=== PATIENT | female | born 1930 | race Caucasian/White ===

== ENCOUNTER 2016-07-25 11:48 | Emergency (ER) | payer MEDICARE, BC ==
[2016-07-25] MEDS ORDERED: Aspirin Low Dose CHEW TAB* 81 MG PO ONE (15:10)
--- NOTE | 2016-07-25 15:10 | UC ---
UC General HPI - HPI Summary HPI Summary: 86 yo female c/o "jittery" feeling x on and off x approx 1 week. Worse since this morning. Alleviating / worsening factors unclear. Pt notes that recently was placed on prednisone approx 3 weeks ago. No fever / chills. No sob / cp / palpitations. + hx colitis, but no recent melena / brbpr. No rash. appetite ok. Denies urinary changes. Although does feel some occas lower abd cramps. Hx [place] -> 3 stents in 1999. Symptoms similar at that time. Also potentially sign - hx "spot" on pancreas, being followed closely, but not cancerous at this time. + hx DM type 2 - History of Current Complaint Chief Complaint: UCGeneralIllness Stated Complaint: SUGAR ISSUE-JITTERY Time Seen by Provider: 07/25/16 14:43 Hx Obtained From: Patient Onset/Duration: Gradual Onset - Allergy/Home Medications Allergies/Adverse Reactions: Allergies Allergy/AdvReac Type Severity Reaction Status Date / Time Levofloxacin [From Levaquin] Allergy Hives/Diff. Verified 07/25/16 15:59 Breathing/I tching Codeine AdvReac Unknown Nausea Verified 07/25/16 15:59 Simvastatin [From Zocor] AdvReac Unknown Leg Cramps Verified 07/25/16 15:59 PMH/Surg Hx/FS Hx/Imm Hx Previously Healthy: No - see hpi. takes many medications. took 81mg po x 1 asa today Endocrine History Of: Reports: Diabetes - TYPE 2 Denies: Thyroid Disease Cardiovascular History Of: Reports: Hypertension, Myocardial Infarction Denies: Cardiac Disorders, Pacemaker/ICD Comment Only: Congestive Heart Failure - [place]-1999 Respiratory History Of: Reports: COPD, Pneumonia Denies: Asthma GI/ History Of: Reports: Ulcer Comment Only: Renal Disease - low eGFR Neurological History Of: Denies: Dementia Psychological History Of: Reports: Anxiety, Depression - Surgical History Surgical History: Yes Surgery Procedure, Year, and Place: PERFORATED EAR DRUM X2; CATARACTS; PARTIAL HYSTERECTOMY; SHOULDER SURGERY 10-11; TUMOR REMOVED FROM LEFT ARM 15+YRS AGO; HEMHORROID; 3 STENTS IN HEART- [facility]LY PECK- PT TO BRING DOCUMENTATION W/ HER; [employer] LOOP RECORDER- I INSTRUCTED PT TO DOWNLOAD PRIOR TO MRI- PER PT, SHE HAS IT DONE W/ THE OFFICE ONCE A MONTH- I INSTRUCTED PT SHE NEEDED TO HAVE IT DONE @ THE OFFICE PRIOR TO HER MRI SO THAT EVERYTHING GETS DOWNLOADED, SHE SAID SHE WILL. - Family History Family History: NON CONTRIBUTORY - Social History Alcohol Use: None Substance Use Type: None Smoking Status (MU): Former Smoker Type: Cigarettes Amount Used/How Often: 1 pack day Length of Time of Smoking/Using Tobacco: 40 years Have You Smoked in the Last Year: No When Did the Patient Quit Smoking/Using Tobacco: 1999 - Immunization History Most Recent Influenza Vaccination: 02/2014 Most Recent Tetanus Shot: date unknown Most Recent Pneumonia Vaccination: 2008 Review of Systems Constitutional: Other - see hpi Skin: Negative Eyes: Other - + trouble focusing eyes x 1 week ENT: Negative Respiratory: Other - see hpi Cardiovascular: Chest Pain Gastrointestinal: Other - cramping Genitourinary: Negative Motor: Negative, Other - hx polio Musculoskeletal: Negative Neurological: Other - hx 3 tia's Psychological: Negative All Other Systems Reviewed And Are Negative: Yes Physical Exam Triage Information Reviewed: Yes Appearance: Well-Appearing, Well-Nourished - sitting up. conversing ok. Vital Signs: Initial Vital Signs Temp 97.9 F 07/25/16 11:56 Pulse 101 07/25/16 11:56 Resp 18 07/25/16 11:56 BP 137/64 07/25/16 11:56 Pulse Ox 96 07/25/16 11:56 Vital Signs Reviewed: Yes Eye Exam: Normal ENT Exam: Normal Neck exam: Normal - no jvd Respiratory Exam: Normal Respiratory: Positive: Chest non-tender, Lungs clear, Normal breath sounds, No respiratory distress, No accessory muscle use Cardiovascular Exam: Other - RRR, correlates with rad pulse. ? syst m Cardiovascular: Positive: Pulses Normal - radial, Brisk Capillary Refill Abdomen Description: Positive: Other: - soft nd, mild lower nondescript tender. no rebound. pt did not want to lie down for examination. Bowel Sounds: Positive: Present Musculoskeletal Exam: Other - gait slow, steady Neurological Exam: Normal - nonfocal. Pt states RLE weakness 2/2 polio years ago Psychological Exam: Normal - conversing easliy and appropriately Skin Exam: Normal Course/Dx - Course Course Of Treatment: EKG sr 73 bpm. low volt precord. blood sugar 90's at 2: 45. FS, see poct. Pt had just urinated prior to encounter so no urine dip. D /w Ms. Lang - symptoms could be from many diff etioligies (incl prednisone, which she asked about), but c/n exclude other such as cardiac. Atilio given previous mi and hx dm. Will send to ED for further eval and treatment. Pt agrees, but respectfully but firmly declines ems. AMA signed for ems. I called ED, spoke with CHARLY Cruz. - Differential Dx - Multi-Symptom Provider Diagnoses: unwell feeling. chest discomfort Discharge - Discharge Plan Condition: Guarded Disposition: AGAINST MEDICAL ADVICE Referrals: Rachel LEWIS [employer],Carla [Primary Care Provider] -
[2016-07-25 15:26] VITALS: BP 134/56
== END 2016-07-25 15:39 | disposition left against medical advice (07) ==
LOC: UCEAST 11:48
DX: I25.2 Old myocardial infarction (principal); I10 Essential (primary) hypertension; Z88.6 Allergy status to analgesic agent; Z88.8 Allergy status to other drugs, medicaments and biological substances; Z87.891 Personal history of nicotine dependence
CPT/HCPCS: 93005; 99213; A9270-GY; G0463

== ENCOUNTER 2016-07-25 15:53 | Emergency (ER) | payer MEDICARE, BC ==
[2016-07-25] MEDS ORDERED: NS 0.9% 1000 ML* 1,000 ML IV ONE (16:31)
[2016-07-25] MEDS ORDERED: Pantoprazole IV* 40 MG IV ONE (16:31)
[2016-07-25 16:59] LABS: Hematocrit 43 % (35-47); Hemoglobin 13.9 g/dl (12.0-16.0); Mean Corpuscular HGB Conc 33 g/dl (31-36); Mean Corpuscular Hemoglobin 30 pg (27-31); Mean Corpuscular Volume 92 fL (80-97); Mean Platelet Volume 7 um3 (7.4-10.4); Red Blood Count 4.62 10^6/ul (4.0-5.4); Red Cell Distribution Width 15 % (10.5-15)
[2016-07-25 17:16] LABS: Albumin 3.4 g/dL (3.2-5.2); BUN/Creatinine Ratio 18.2 (8-20); C Reactive Protein 8.85 mg/L (< 5.00); Calcium 8.7 mg/dL (8.6-10.3); EGFR Non-African American 33.4 (>60); Globulin 2.5 g/dL (2-4); Magnesium 1.9 mg/dL (1.9-2.7); Total Bilirubin 0.7 mg/dL (0.2-1.0); Total Protein 5.9 g/dL (6.4-8.9)
--- NOTE | 2016-07-25 17:23 | RAD ---
Indication: Abdominal pain. History of inflammatory bowel disease. On prednisone following recent colonoscopy. Comparison: August 17, 2015 CT. Technique: Supine and upright views of the abdomen. Report: Negative for free air. Negative for dilated bowel loops. Moderate stool in the colon. No suspicious calcifications or mass effect. Unremarkable soft tissue contours. Surgical anchors at the bilateral superior pubic rami noted. IMPRESSION: Negative for free air or evidence for bowel obstruction.
[2016-07-25 17:27] LABS: Potassium 3.9 mmol/L (3.5-5.0)
[2016-07-25 17:53] VITALS: BP 130/55
--- NOTE | 2016-07-25 18:37 | ED ---
Ama Ardon Matthew, scribed for Marty Goldstein MD on 07/25/16 at 1657 . Complex/Multi-Sys Presentation - HPI Summary HPI Summary: An 86 y/o female presents to the ED by transfer from [facility] with a CC of feeling jittery since 1 week ago. Associated symptoms include nausea, epigatric abdominal discomfort, and visual changes. The patient recently took prednisone for two weeks after a colonoscopy. After taking the medication, she became symptomatic. Every time the patient swallows or eats she states that she belches. PMHx includes crohn's disease. - History Of Current Complaint Chief Complaint: EDGeneral Time Seen by Provider: 07/25/16 16:13 Hx Obtained From: Patient Onset/Duration: Gradual Onset, Lasting Weeks - 1, Still Present Timing: Constant Severity Currently: Moderate Severity Initially: Moderate Location: Negative Associated Signs And Symptoms: Positive: Nausea, Abdominal Pain - Epigastric Discomfort, Other - visual changes - Allergies/Home Medications Allergies/Adverse Reactions: Allergies Allergy/AdvReac Type Severity Reaction Status Date / Time Levofloxacin [From Levaquin] Allergy Hives/Diff. Verified 07/25/16 15:59 Breathing/I tching Codeine AdvReac Unknown Nausea Verified 07/25/16 15:59 Simvastatin [From Zocor] AdvReac Unknown Leg Cramps Verified 07/25/16 15:59 PMH/Surg Hx/FS Hx/Imm Hx Endocrine/Hematology History: Reports: Hx Diabetes - TYPE 2 Denies: Hx Thyroid Disease Cardiovascular History: Reports: Hx Angina, Hx Coronary Artery Disease, Hx Hypercholesterolemia, Hx Hypertension, Hx Myocardial Infarction, Hx Syncope - "Possible syncopal episodes", Other Cardiovascular Problems/Disorders - STENTS Denies: Hx Pacemaker/ICD Comment Only: Hx Congestive Heart Failure - [place]-1999 Respiratory History: Reports: Hx Chronic Obstructive Pulmonary Disease (COPD), Hx Pneumonia, Hx Sleep Apnea - CPAP Denies: Hx Asthma GI History: Reports: Hx Crohn's Disease, Hx Gastroesophageal Reflux Disease, Hx Ulcer History: Reports: Hx Kidney Infection, Other Problems/Disorders - Pt of hessons in past Comment Only: Hx Renal Disease - low eGFR Musculoskeletal History: Reports: Hx Arthritis, Hx Back Problems, Hx Bursitis - shoulders, Hx Tendonitis - shoulders, Other Musculoskeletal History - "joint pain" Denies: Hx Scoliosis Sensory History: Reports: Hx Contacts or Glasses, Hx Hearing Aid, Hx Hearing Problem Opthamlomology History: Reports: Hx Contacts or Glasses Neurological History: Reports: Hx Headaches - AND NAUSEA, Other Neuro Impairments/Disorders - LEFT SHOULDER SURGERY Denies: Hx Dementia, Hx Developmental Delay Psychiatric History: Reports: Hx Anxiety, Hx Depression, Hx Suicide Attempt Denies: Hx Panic Disorder - Cancer History Cancer Type, Location and Year: skin cancer 1999 - Surgical History Surgery Procedure, Year, and Place: PERFORATED EAR DRUM X2; CATARACTS; PARTIAL HYSTERECTOMY; SHOULDER SURGERY 04-29; TUMOR REMOVED FROM LEFT ARM 15+YRS AGO; HEMHORROID; 3 STENTS IN HEART- [facility]LY PECK- PT TO BRING DOCUMENTATION W/ HER; [employer] LOOP RECORDER- I INSTRUCTED PT TO DOWNLOAD PRIOR TO MRI- PER PT, SHE HAS IT DONE W/ THE OFFICE ONCE A MONTH- I INSTRUCTED PT SHE NEEDED TO HAVE IT DONE @ THE OFFICE PRIOR TO HER MRI SO THAT EVERYTHING GETS DOWNLOADED, SHE SAID SHE WILL. Hx Anesthesia Reactions: No Infectious Disease History: No Infectious Disease History: Reports: History Other Infectious Disease - pt states has current uti Denies: Hx Clostridium Difficile, Hx Hepatitis, Hx Human Immunodeficiency Virus (HIV), Hx of Known/Suspected MRSA, Hx Shingles, Hx Tuberculosis, Hx Known/ Suspected VRE, Hx Known/Suspected VRSA, Traveled Outside the [place] in Last 30 Days - Family History Known Family History: Positive: Cardiac Disease - Paternal Family History: FHx of Breast CA - Mother, Grandmother - Social History Alcohol Use: None Substance Use Type: Reports: None Hx Tobacco Use: Yes Smoking Status (MU): Former Smoker Type: Cigarettes Amount Used/How Often: 1 pack day Length of Time of Smoking/Using Tobacco: 40 years Have You Smoked in the Last Year: No Review of Systems Constitutional: Other - Jittery Eyes: Negative ENT: Other - Visual Changes Cardiovascular: Negative Respiratory: Negative Positive: Abdominal Pain - epigastric discomfort Genitourinary: Negative Musculoskeletal: Negative Skin: Negative Neurological: Negative Psychological: Normal All Other Systems Reviewed And Are Negative: Yes Physical Exam - Summary Physical Exam Summary: VITAL SIGNS: Reviewed. GENERAL: Patient is a well developed and nourished female who is lying comfortable in the stretcher. Patient is not in any acute respiratory distress. HEAD AND FACE: Normocephalic and atraumatic. EYES: PERRLA, EOMI x 2, No injected conjunctiva. EARS: Hearing grossly intact. Ear canals and tympanic membranes are WNL. MOUTH: Oropharynx within normal limits. NECK: Supple, trachea is midline, no adenopathy, no JVD. CHEST: Symmetric, no tenderness at palpation LUNGS: Clear to auscultation bilaterally. No wheezing or crackles. CVS: RRR,, S1 and S2 present, no murmurs or gallops appreciated. ABDOMEN: Soft, non-tender. No signs of distention. Positive bowel sounds. No rebound no guarding, and no masses palpated. No abdominal bruit or pulsations. EXTREMITIES: FROM in all major joints, no edema, no cyanosis or clubbing. NEURO: Alert and oriented x 3. No acute neurological deficits. Speech is normal. SKIN: Dry and warm Triage Information Reviewed: Yes Vital Signs On Initial Exam: Initial Vitals Temp Pulse Resp BP Pulse Ox 97.1 F 80 16 135/82 98 07/25/16 15:56 07/25/16 15:56 07/25/16 15:56 07/25/16 15:56 07/25/16 15:56 Vital Signs Reviewed: Yes Diagnostics - Vital Signs Vital Signs Temp Pulse Resp BP Pulse Ox 07/25/16 15:56 97.1 F 80 16 135/82 98 - Laboratory Lab Results: Lab Results 07/25/16 07/25/16 Range/Units 16:46 16:46 WBC 9.0 (3.5-10.8) 10^3/ul RBC 4.62 (4.0-5.4) 10^6/ul Hgb 13.9 (12.0-16.0) g/dl Hct 43 (35-47) % MCV 92 (80-97) fL MCH 30 (27-31) pg MCHC 33 (31-36) g/dl RDW 15 (10.5-15) % Plt Count 204 (150-450) 10^3/ul MPV 7 L (7.4-10.4) um3 Neut % (Auto) 72.0 (38-83) % Lymph % (Auto) 18.7 L (25-47) % Pratt % (Auto) 6.1 (1-9) % Eos % (Auto) 2.4 (0-6) % Baso % (Auto) 0.8 (0-2) % Absolute Neuts (auto) 6.5 (1.5-7.7) 10^3/ul Absolute Lymphs (auto) 1.7 (1.0-4.8) 10^3/ul Absolute Monos (auto) 0.6 (0-0.8) 10^3/ul Absolute Eos (auto) 0.2 (0-0.6) 10^3/ul Absolute Basos (auto) 0.1 (0-0.2) 10^3/ul Absolute Nucleated RBC 0 10^3/ul Nucleated RBC % 0 Sodium 138 (133-145) mmol/L Potassium 3.9 (3.5-5.0) mmol/L Chloride 101 (101-111) mmol/L Carbon Dioxide 31 (22-32) mmol/L Anion Gap 6 (2-11) mmol/L BUN 27 H (6-24) mg/dL Creatinine 1.48 H (0.51-0.95) mg/dL Est GFR ( Amer) 43.0 (>60) Est GFR (Non-Af Amer) 33.4 (>60) BUN/Creatinine Ratio 18.2 (8-20) Glucose 189 H (70-100) mg/dL Calcium 8.7 (8.6-10.3) mg/dL Magnesium 1.9 (1.9-2.7) mg/dL Total Bilirubin 0.70 (0.2-1.0) mg/dL AST 14 (13-39) U/L ALT 10 (7-52) U/L Alkaline Phosphatase 50 (34-104) U/L C-Reactive Protein 8.85 H (< 5.00) mg/L Total Protein 5.9 L (6.4-8.9) g/dL Albumin 3.4 (3.2-5.2) g/dL Globulin 2.5 (2-4) g/dL Albumin/Globulin Ratio 1.4 (1-3) Amylase 52 (29-103) U/L Lipase 48 (11.0-82.0) U/L Result Diagrams: 07/25/16 16:46 07/25/16 16:46 Lab Statement: Any lab studies that have been ordered have been reviewed, and results considered in the medical decision making process. - Radiology Abdomen XR Xray Interpretation: No Acute Changes - IMPRESSION: Negative for free air or evidence for bowel obstruction. Radiology Interpretation Completed By: Radiologist Complex Multi-Symp Course/Dx Assessment/Plan: An 86 y/o female presents to the ED with a CC of epigastric pain and discomfort for approximately two week after starting prednisone. She reports that she started the prednisone to control Crohns disease. She denies nausea, vomiting, diarrhea, and constipation. In the ED course, she given IV fluids and protonics and the symptom resolved. At this point, the patient is completely asymptomatic and will be discharged home with follow-up from her PCP. I believe her symptoms are associated with prednisone intake. I discussed all the findings and test results with the patient and patient. Patient was instructed to return to the emergency room immediately if any of the symptoms return or worsens. They understand and agree. They were explained the possibility of an early abdominal pathology which was not detected at this time despite the physical exam and testing. They understand and agree. Abdominal exam before discharge: Soft,NT. No signs of distention. BS present. No rebound no guarding, and no masses palpated. Patient is alert and oriented. Patient is hemodynamically stable. Patient is to follow up with primary care physician in the next 24 hours. Patient and patients parents agree and understands. - Diagnoses Provider Diagnoses: GERD (gastroesophageal reflux disease), Gastritis Discharge - Discharge Plan Condition: Stable Disposition: HOME Prescriptions: Omeprazole CAP* [Prilosec CAP* 20 MG] 20 mg PO BID #20 cap. Patient Education Materials: Gastroesophageal Reflux Disease (ED), Gastritis ( ED) Referrals: Carla Murphy RN [Primary Care Provider] - 2 Days Additional Instructions: Please follow-up with your primary care physician in two days. The documentation as recorded by the Ama cavazos Matthew accurately reflects the service I personally performed and the decisions made by me, Marty Goldstein MD.
== END 2016-07-25 17:51 | disposition home or self-care (01) ==
LOC: ED 15:53
DX: K29.70 Gastritis, unspecified, without bleeding (principal); K21.9 Gastro-esophageal reflux disease without esophagitis; R10.13 Epigastric pain; R11.0 Nausea
CPT/HCPCS: 36415; 74020; 80053; 82150; 83690; 83735; 85025; 86140; 93005; 96361; 96374; 99213; 99282; A9270-GY; G0463

== ENCOUNTER 2016-08-26 13:34 | Emergency (ER) | payer MEDICARE, BC ==
[2016-08-26 14:52] VITALS: BP 155/91
--- NOTE | 2016-08-26 15:10 | UC ---
Laceration HPI - HPI Summary HPI Summary: The patient comes in today for: 1. Right forearm skin tear Onset: 3-4 hours ago. Palliative/provocative: Pressure makes it worse. Rest and non-touching makes it better. Quality: Sore Region: Right forearm. Severity: 8/10 though she appears to be more like 4/10 as she is talkative and smiling and laughing at times. Time: Constant. Associated symptoms: Event: She fell down for reasons that are not known. She states that she has been to five different doctors to figure why she has been falling for about 1-2 years. She has seen a inspector plumbing, and others she can't remember. Today , she was on her porch and fell. She scraped her right arm slid across her porch. She denies any LOC. She states that she has no headache or neck pain. She got up and went inside. She lives by herself in her own home. She called her neighbor who put on the gauze and she came here. Last tetanus: "a couple years ago." She denies any problems with her arm ( i.e. pain) other than at the skin tear area. * - History Of Current Complaint Chief Complaint: UCLaceration Stated Complaint: ARM LACERATION Time Seen by Provider: 08/26/16 14:53 Hx Obtained From: Patient - Allergies/Home Medications Allergies/Adverse Reactions: Allergies Allergy/AdvReac Type Severity Reaction Status Date / Time Levofloxacin [From Levaquin] Allergy Hives/Diff. Verified 07/25/16 15:59 Breathing/I tching Codeine AdvReac Unknown Nausea Verified 07/25/16 15:59 Simvastatin [From Zocor] AdvReac Unknown Leg Cramps Verified 07/25/16 15:59 PMH/Surg Hx/FS Hx/Imm Hx Previously Healthy: No - "Colitis" Endocrine History Of: Reports: Diabetes - TYPE 2, Dyslipidemia Cardiovascular History Of: Reports: Hypertension, Myocardial Infarction - Pt states that she may have had an [place] in 2004., Congestive Heart Failure - She states that she may have CHF. Denies: Cardiac Disorders, Pacemaker/ICD, Atrial Fibrillation, Deep Vein Thrombosis, Bleeding Disorders Respiratory History Of: Reports: COPD Denies: Asthma, Bronchitis, Pneumonia, Pulmonary Embolism GI/ History Of: Reports: Gastroesophageal Reflux, Ulcer Denies: Gastrointestinal Bleed, Gall Bladder Disease, Kidney Stones, Diverticulitis, Renal Disease, Urosepsis Neurological History Of: Denies: TIA, CVA, Dementia, Seizures, Migraine Psychological History Of: Reports: Anxiety, Depression Denies: Bipolar Disorder, Schizophrenia, Post Traumatic Stress Disorder Cancer History Of: Denies: Lung Cancer, Colorectal Cancer, Breast Cancer, Prostate Cancer, Cervical Cancer Other History Of: Anticoagulant Therapy Negative For: HIV, Hepatitis B - Aspirin 81 mg/day., Hepatitis C - Surgical History Surgical History: Yes Surgery Procedure, Year, and Place: PERFORATED EAR DRUM X2; CATARACTS; PARTIAL HYSTERECTOMY; SHOULDER SURGERY 04-29; TUMOR REMOVED FROM LEFT ARM 15+YRS AGO; HEMHORROID; 3 STENTS IN HEART- CHARLY PECK- PT TO BRING DOCUMENTATION W/ HER; [email or web address] LOOP RECORDER- I INSTRUCTED PT TO DOWNLOAD PRIOR TO MRI- PER PT, SHE HAS IT DONE W/ THE OFFICE ONCE A MONTH- I INSTRUCTED PT SHE NEEDED TO HAVE IT DONE @ THE OFFICE PRIOR TO HER MRI SO THAT EVERYTHING GETS DOWNLOADED, SHE SAID SHE WILL. - Family History Known Family History: Positive: Cardiac Disease - Paternal , Hypertension, Diabetes Family History: FHx of Breast CA - Mother, Grandmother - Social History Occupation: Retired Alcohol Use: None Substance Use Type: None Smoking Status (MU): Former Smoker Type: Cigarettes Amount Used/How Often: 1 pack day Length of Time of Smoking/Using Tobacco: 40 years Have You Smoked in the Last Year: No When Did the Patient Quit Smoking/Using Tobacco: 1999 - Immunization History Most Recent Influenza Vaccination: 02/2014 Most Recent Tetanus Shot: date unknown Most Recent Pneumonia Vaccination: 2008 Review of Systems Constitutional: Negative Skin: Negative Eyes: Negative ENT: Negative Respiratory: Negative Cardiovascular: Negative Gastrointestinal: Negative Genitourinary: Negative All Other Systems Reviewed And Are Negative: Yes Physical Exam Triage Information Reviewed: Yes Completion Of Physical Exam Limited Due To: Dementia - She does now know for sure what Rx she is on nor why. Appearance: No Pain Distress, Well-Nourished Vital Signs: Initial Vital Signs Temp 98.0 F 08/26/16 14:46 Pulse 87 08/26/16 14:46 Resp 18 08/26/16 14:46 BP 155/91 08/26/16 14:46 Pulse Ox 96 08/26/16 14:46 Vital Signs Reviewed: Yes Eyes: Positive: Conjunctiva Clear. Negative: Discharge ENT: Positive: Hearing grossly normal - She is wearing bilateral hearing aids.. Negative: Pharyngeal erythema, Nasal congestion, Nasal drainage, Tonsillar swelling, Tonsillar exudate Dental: Negative: Gross Decay/Caries @, Dental Fracture @ Neck: Positive: Supple, Nontender, No Lymphadenopathy. Negative: Nuchal Rigidity Respiratory: Positive: Lungs clear, No respiratory distress, No accessory muscle use. Negative: Crackles, Wheezing Cardiovascular: Positive: RRR, No Murmur Abdomen Description: Positive: Nontender, No Organomegaly, Soft. Negative: Distended, Guarding Musculoskeletal: Positive: Strength Intact, ROM Intact Neurological: Positive: Alert, Muscle Tone Normal Psychological: Positive: Age Appropriate Behavior, Consolable Skin: Positive: breakdown - she has a skin tear of her left inner forearm. There is a bridge of skin from one side to the other, but there are shreads of mutilated skin along the edges of both denuded areas.. Negative: rashes Laceration Course/Dx - Course/Dx Course Of Treatment: The patient has the non-viable skin shreads removed and a Xeroform dressing, then Telfa, and gauze applied to the injured area. Coban was applied to provide slight pressure. - Differential Dx - Laceration/Wound Provider Diagnoses: Skin tear, right forearm. Discharge - Discharge Plan Condition: Stable Disposition: HOME Patient Education Materials: Skin Tear (ED) Referrals: Rachle OSUNAP,Carla [Primary Care Provider] - 3 Days (Please contact your primary care provider as soon as you can for an appointment later this week to have your arm re-evaluated. If you have any problems between now and then, please be seen sooner by your primary care provider or us.)
== END 2016-08-26 15:59 | disposition home or self-care (01) ==
LOC: UCEAST 13:34
DX: S51.811A Laceration without foreign body of right forearm, initial encounter (principal); W19.XXXA Unspecified fall, initial encounter; Z91.81 History of falling; Y93.9 Activity, unspecified; Y92.008 Other place in unspecified non-institutional (private) residence as the place of occurrence of the external cause; Z88.1 Allergy status to other antibiotic agents; Z88.5 Allergy status to narcotic agent; Z98.49 Cataract extraction status, unspecified eye; Z87.891 Personal history of nicotine dependence
CPT/HCPCS: 99212; G0463

== ENCOUNTER → 2016-11-10 10:12 | Emergency (ER) | payer MEDICARE, BC ==
[~2016-11-10 10:12] MED LIST: Diazepam TAB(*) 5 MG PO ONE; HYDROcodone/ACETAMIN 5-325 MG* 1 TAB PO ONE; traMADol TAB* 50 MG PO ONE
--- NOTE | 2016-11-10 11:40 | RAD ---
HISTORY: Radicular pain COMPARISONS: May 16, 2015 TECHNIQUE: Multiple contiguous axial CT scans were obtained of the cervical spine without intravenous contrast, with coronal and sagittal multiplanar reformations. FINDINGS: BRAIN: The visualized brain is unremarkable CENTRAL CANAL: Evaluation of the central canal is limited on CT technique; however, there is no obvious canalicular mass or epidural hemorrhage. ALIGNMENT: There is straightening of the cervical lordosis. VERTEBRAL BODIES: There is multilevel anterolateral marginal osteophyte formation. JOINTS: There is diffuse facet and uncovertebral osteoarthritis. There is osteoarthritis of the atlantoaxial articulation. MUSCULATURE: Unremarkable INTERVERTEBRAL DISCS: There is diffuse loss of intervertebral disc height. AXIAL IMAGES: C2-C3: There is bilateral uncovertebral and facet hypertrophy. There is moderate bilateral neural foraminal narrowing. There is no osseous central canal stenosis. C3-C4: There is exuberant bilateral uncovertebral and facet osteoarthritis. There is severe bilateral neural foraminal narrowing. There is mild narrowing of the central canal. C4-C5: There is exuberant bilateral uncovertebral and facet osteoarthritis. There is severe left and mild right neural foraminal narrowing. There is no significant osseous central canal stenosis. C5-C6: There is bilateral uncovertebral facet hypertrophy. There is moderate left neural foraminal narrowing. There is no osseous central canal stenosis. There is bilateral uncovertebral facet hypertrophy. There is moderate to severe bilateral neural foraminal narrowing. There is no osseous central canal stenosis. C6-C7: There is bilateral vertebral and facet hypertrophy. There is moderate left neural foraminal narrowing. There is no significant osseous central canal stenosis. C7-T1: There is no osseous neural foraminal narrowing or central canal stenosis. SOFT TISSUES: The visualized soft tissues of the neck are unremarkable. The prevertebral fat stripe is preserved. OTHER: None. IMPRESSION: 1. DEGENERATIVE DISC DISEASE AND OSTEOARTHRITIS. 2. THERE IS MILD NARROWING OF THE CENTRAL CANAL AT C3-C4. 3. THERE IS MULTILEVEL NEURAL FORAMINAL NARROWING RIGHT ABOVE
[2016-11-10 15:44] VITALS: BP 118/69
--- NOTE | 2016-11-10 18:17 | ED ---
Duglas, DoctorPamela, scribed for Leonard Valentine MD on 11/10/16 at 1046 . Upper Extremity Pain - HPI Summary HPI Summary: 86 year old female arrived to [facility] c/o pain in the right shoulder beginning at 0100 this morning. She reports that the pain began as neck pain that spreads through the back, but it is particularly bad in one spot on the right shoulder. She describes the pain as 'soreness,' and she is unable to lift her arm. Her pain is exacerbated with movement and positioning. She also experiences slight chest pain with deep breaths. Pt has not yet taken any medication for her symptoms. - History of Current Complaint Chief Complaint: EDShoulderClavicWaltj Stated Complaint: HEADACHE, NECK PAIN, ARM SHOULDER AND PAIN Time Seen by Provider: 11/10/16 10:37 Hx Obtained From: Patient Onset/Duration: Started Hours Ago Timing: Constant Severity Initially: Moderate Severity Currently: Moderate Pain Location: Shoulder Aggravating Factor(s): Movement, Lifting Associated Signs & Symptoms: Positive: Chest Pain - mild chest pain when taking deep breaths, Neck Pain - Allergies/Home Medications Allergies/Adverse Reactions: Allergies Allergy/AdvReac Type Severity Reaction Status Date / Time Levofloxacin [From Levaquin] Allergy Hives/Diff. Verified 07/25/16 15:59 Breathing/I tching Codeine AdvReac Unknown Nausea Verified 07/25/16 15:59 Simvastatin [From Zocor] AdvReac Unknown Leg Cramps Verified 07/25/16 15:59 PMH/Surg Hx/FS Hx/Imm Hx Endocrine/Hematology History: Reports: Hx Anticoagulant Therapy, Hx Diabetes - TYPE 2 Denies: Hx Thyroid Disease Cardiovascular History: Reports: Hx Angina, Hx Congestive Heart Failure - She states that she may have CHF., Hx Coronary Artery Disease, Hx Hypercholesterolemia, Hx Hypertension, Hx Myocardial Infarction - Pt states that she may have had an [place] in 2004., Hx Syncope - "Possible syncopal episodes" , Other Cardiovascular Problems/Disorders - STENTS Denies: Hx Deep Vein Thrombosis, Hx Pacemaker/ICD Respiratory History: Reports: Hx Chronic Obstructive Pulmonary Disease (COPD), Hx Sleep Apnea - CPAP Denies: Hx Asthma, Hx Lung Cancer, Hx Pneumonia, Hx Pulmonary Embolism GI History: Reports: Hx Crohn's Disease, Hx Gastroesophageal Reflux Disease, Hx Ulcer Denies: Hx Gall Bladder Disease, Hx Gastrointestinal Bleed, Hx Urosepsis History: Reports: Hx Kidney Infection, Other Problems/Disorders - Pt of hessons in past Denies: Hx Kidney Stones, Hx Renal Disease Musculoskeletal History: Reports: Hx Arthritis, Hx Back Problems, Hx Bursitis - shoulders, Hx Tendonitis - shoulders, Other Musculoskeletal History - "joint pain" Denies: Hx Scoliosis Sensory History: Reports: Hx Contacts or Glasses, Hx Hearing Aid, Hx Hearing Problem Opthamlomology History: Reports: Hx Contacts or Glasses Neurological History: Reports: Hx Headaches - AND NAUSEA, Other Neuro Impairments/Disorders - LEFT SHOULDER SURGERY Denies: Hx Dementia, Hx Developmental Delay, Hx Migraine, Hx Seizures, Hx Transient Ischemic Attacks (TIA) Psychiatric History: Reports: Hx Anxiety, Hx Depression, Hx Suicide Attempt Denies: Hx Panic Disorder, Hx Schizophrenia, Hx Bipolar Disorder - Cancer History Cancer Type, Location and Year: skin cancer 1999 - Surgical History Surgery Procedure, Year, and Place: PERFORATED EAR DRUM X2;. PARTIAL HYSTERECTOMY;. SHOULDER SURGERY ;. 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 HEMHORROIDECTOMY;. 3 STENTS IN [facility]- [facility]- ;. [employer] LOOP RECORDER-(BECKY FROM [employer] OFFICE CALLED [facility] LOOP RECORDER IS DOWNLOADED EVERY NIGHT- DO IT IS OKAY TO HAVE AN MRI) Hx Anesthesia Reactions: No Infectious Disease History: Reports: History Other Infectious Disease - pt states has current uti Denies: Hx Clostridium Difficile, Hx Hepatitis, Hx Human Immunodeficiency Virus (HIV), Hx of Known/Suspected MRSA, Hx Shingles, Hx Tuberculosis, Hx Known/ Suspected VRE, Hx Known/Suspected VRSA, Traveled Outside the in Last 30 Days - Family History Known Family History: Positive: Cardiac Disease - Paternal , Hypertension, Diabetes Family History: FHx of Breast CA - Mother, Grandmother - Social History Alcohol Use: None Substance Use Type: Reports: None Hx Tobacco Use: Yes Smoking Status (MU): Former Smoker Type: Cigarettes Amount Used/How Often: 1 pack day Length of Time of Smoking/Using Tobacco: 40 years Have You Smoked in the Last Year: No Review of Systems Negative: Fever Positive: Chest Pain - mild chest pain with deep breaths Positive: Other - pain in the right shoulder; pain from neck through back All Other Systems Reviewed And Are Negative: Yes Physical Exam Triage Information Reviewed: Yes Vital Signs On Initial Exam: Initial Vitals Temp Pulse Resp BP Pulse Ox 98.4 F 94 20 135/66 98 11/10/16 10:17 11/10/16 10:17 11/10/16 10:17 11/10/16 10:17 11/10/16 10:17 Vital Signs Reviewed: Yes Appearance: Positive: Well-Appearing, No Pain Distress Skin: Positive: Warm, Skin Color Reflects Adequate Perfusion, Dry Head/Face: Positive: Normal Head/Face Inspection Eyes: Positive: Normal ENT: Positive: Normal ENT inspection Neck: Positive: Supple, Nontender Respiratory/Lung Sounds: Positive: Clear to Auscultation, Breath Sounds Present Cardiovascular: Positive: RRR Abdomen Description: Positive: Nontender, Soft Bowel Sounds: Positive: Present Musculoskeletal: Positive: Other - tender in right rhomboid area Neurological: Positive: Normal Psychiatric: Positive: Normal Diagnostics - Vital Signs Vital Signs Temp Pulse Resp BP Pulse Ox 11/10/16 10:29 98.3 F 75 20 138/57 96 11/10/16 10:17 98.4 F 94 20 135/66 98 - Laboratory Lab Statement: Any lab studies that have been ordered have been reviewed, and results considered in the medical decision making process. - CT Cervical Spine CT CT Interpretation Completed By: Radiologist - IMPRESSION: 1. DEGENERATIVE DISC DISEASE AND OSTEOARTHRITIS. 2. THERE IS MILD NARROWING OF THE CENTRAL CANAL AT C3-C4. 3. THERE IS MULTILEVEL NEURAL FORAMINAL NARROWING RIGHT ABOVE Re-Evaluation - Re-Evaluation First Eval Re-Evaluation Time: 12:31 Second Eval Re-Evaluation Time: 15:19 Comment: Discussed plan to discharge pt, she is agreeable. Course/Dx - Course Course Of Treatment: Ms. Lang developed right sided pain especially in the back of her shoulder last night. Any movement aggravates it and she does have significant OA/DDD in her neck on CT. I was unable to get her any relief with pain medications but Valium given as a muscle relaxer helped a lot and I will treat her accordingly. - Diagnoses Provider Diagnoses: Cervical radiculopathy Discharge - Discharge Plan Condition: Stable Disposition: HOME Prescriptions: Diazepam TAB(*) [Valium TAB(*)] 5 mg PO TID PRN #15 tab MDD 3 PRN Reason: Pain Patient Education Materials: Cervical Radiculopathy (ED) Referrals: Rachel LEWIS MANAGER R D,Carla [Primary Care Provider] - The documentation as recorded by the Doctor cavazos Tahera accurately reflects the service I personally performed and the decisions made by me, Leonard Valentine MD.
== END | disposition home or self-care (01) ==
LOC: ED 10:12
DX: M54.12 Radiculopathy, cervical region (principal); J44.9 Chronic obstructive pulmonary disease, unspecified; G47.30 Sleep apnea, unspecified; E11.9 Type 2 diabetes mellitus without complications; Z79.01 Long term (current) use of anticoagulants; I25.10 Atherosclerotic heart disease of native coronary artery without angina pectoris; I10 Essential (primary) hypertension; I25.2 Old myocardial infarction; Z85.828 Personal history of other malignant neoplasm of skin; Z87.891 Personal history of nicotine dependence
CPT/HCPCS: 72125; 99285; A9270-GY

== ENCOUNTER 2016-12-07 22:19 | Inpatient (IN) | payer MEDICARE, BC ==
[2016-12-07 22:54] LABS: Hematocrit 44 % (35-47); Hemoglobin 14.3 g/dl (12.0-16.0); Mean Corpuscular HGB Conc 33 g/dl (31-36); Mean Corpuscular Hemoglobin 29 pg (27-31); Mean Corpuscular Volume 90 fL (80-97); Mean Platelet Volume 7 um3 (7.4-10.4); Red Blood Count 4.86 10^6/ul (4.0-5.4); Red Cell Distribution Width 14 % (10.5-15); White Blood Count 22.7 10^3/ul (3.5-10.8)
[2016-12-07 22:58] LABS: Add Diff/Slide Review? Slide Review Added; Comments Flag Yes
[2016-12-07] MEDS ORDERED: Ondansetron INJ* 2 MG/ML VIAL IV ONE (23:03)
[2016-12-07] MEDS ORDERED: NS 0.9% 1000 ML* 1,000 ML IV ONE (23:03)
[2016-12-07 23:08] LABS: Albumin 3.7 g/dL (3.2-5.2); Calcium 9.1 mg/dL (8.6-10.3); EGFR African American 33.7 (>60); EGFR Non-African American 26.2 (>60); Globulin 3.1 g/dL (2-4); Potassium 4.2 mmol/L (3.5-5.0); Total Bilirubin 0.7 mg/dL (0.2-1.0); Total Protein 6.8 g/dL (6.4-8.9)
[2016-12-07] MEDS ORDERED: Iodixanol* (CONTRAST) 320 MG/ML 100 ML SDV IV ONE (23:23)
[2016-12-08] MEDS ORDERED: cefTRIAXone(*) 1 GM in NS 0.9% 50 ML* 50 ML IVPB ONE (02:49)
[2016-12-08 02:50] LABS: Urine Bacteria 1+ (Absent); Urine Bilirubin Negative (Negative); Urine Glucose Negative (Negative); Urine Nitrite Negative (Negative)
[2016-12-08] MEDS ORDERED: Morphine INJ* 2 MG/ML 1 ML SYRINGE IV ONE (04:09)
[2016-12-08] MEDS ORDERED: Ondansetron INJ* 2 MG/ML VIAL IV ONE (04:10)
[2016-12-08] MEDS ORDERED: Piperac/Tazob 3.375 gm in NS* 3.375 GM/100 ML BAG IVPB ONE (05:00)
[2016-12-08] MEDS ORDERED: Ondansetron INJ* 2 MG/ML VIAL IV PRN (05:02)
[2016-12-08] MEDS ORDERED: Morphine INJ* 2 MG/ML 1 ML SYRINGE IV PRN (05:02)
[2016-12-08] MEDS ORDERED: oxyCODONE TAB* 5 MG TAB PO PRN (05:02)
[2016-12-08] MEDS ORDERED: Dextrose 50% Syringe 50 ML* 25 GM/50 ML SYRINGE IV PUSH PRN (05:04)
--- NOTE | 2016-12-08 05:41 | ED ---
I, Joe,Joseph, scribed for Ashok Urias MD on 12/07/16 at 2301 . Abdominal Pain/Female - HPI Summary HPI Summary: This 86 y/o female presents to ED for acute onset of diffuse abd cramping and diarrhea since 1730 PM. Pt lives alone with her dog. Pt was watching TV on couch at time of onset. Positive n/v x2, diarrhea, and blood noted in toilet seat. Pt did admit that she was straining a bit to have bowel movement. Pain was better after bowel movement. PMHx does include Crohn's disease that was dx 5 years ago. Plan of care involving CT scan is discussed with pt. - History of Current Complaint Chief Complaint: EDAbdPain Stated Complaint: ABD PAIN/DIARRHEA Time Seen by Provider: 12/07/16 22:25 Hx Obtained From: Patient, Medical Records Hx Last Menstrual Period: NA ?: No Onset/Duration: Still Present Timing: Constant Pain Intensity: 8 Pain Scale Used: 0-10 Numeric Allergies/Adverse Reactions: Allergies Allergy/AdvReac Type Severity Reaction Status Date / Time Levofloxacin [From Levaquin] Allergy Hives/Diff. Verified 07/25/16 15:59 Breathing/I tching Codeine AdvReac Unknown Nausea Verified 07/25/16 15:59 Simvastatin [From Zocor] AdvReac Unknown Leg Cramps Verified 07/25/16 15:59 PMH/Surg Hx/FS Hx/Imm Hx Endocrine/Hematology History: Reports: Hx Anticoagulant Therapy, Hx Diabetes - TYPE 2 Denies: Hx Thyroid Disease Cardiovascular History: Reports: Hx Angina, Hx Congestive Heart Failure - She states that she may have CHF., Hx Coronary Artery Disease, Hx Hypercholesterolemia, Hx Hypertension, Hx Myocardial Infarction - Pt states that she may have had an [place] in 2004., Hx Syncope - "Possible syncopal episodes" , Other Cardiovascular Problems/Disorders - STENTS Denies: Hx Deep Vein Thrombosis, Hx Pacemaker/ICD Respiratory History: Reports: Hx Chronic Obstructive Pulmonary Disease (COPD), Hx Sleep Apnea - CPAP Denies: Hx Asthma, Hx Lung Cancer, Hx Pneumonia, Hx Pulmonary Embolism GI History: Reports: Hx Crohn's Disease, Hx Gastroesophageal Reflux Disease, Hx Ulcer - Also ulcerative colitis? Crohn's? Denies: Hx Gall Bladder Disease, Hx Gastrointestinal Bleed, Hx Urosepsis History: Reports: Hx Kidney Infection, Other Problems/Disorders - Pt of hessons in past Denies: Hx Kidney Stones, Hx Renal Disease Musculoskeletal History: Reports: Hx Arthritis, Hx Back Problems, Hx Bursitis - shoulders, Hx Tendonitis - shoulders, Other Musculoskeletal History - "joint pain" Denies: Hx Scoliosis Sensory History: Reports: Hx Contacts or Glasses, Hx Hearing Aid, Hx Hearing Problem Opthamlomology History: Reports: Hx Contacts or Glasses Neurological History: Reports: Hx Headaches - AND NAUSEA, Other Neuro Impairments/Disorders - LEFT SHOULDER SURGERY Denies: Hx Dementia, Hx Developmental Delay, Hx Migraine, Hx Seizures, Hx Transient Ischemic Attacks (TIA) Psychiatric History: Reports: Hx Anxiety, Hx Depression, Hx Suicide Attempt Denies: Hx Panic Disorder, Hx Schizophrenia, Hx Bipolar Disorder - Cancer History Cancer Type, Location and Year: skin cancer 1999 - Surgical History Surgery Procedure, Year, and Place: PERFORATED EAR DRUM X2;. PARTIAL HYSTERECTOMY;. SHOULDER SURGERY ;. 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 HEMHORROIDECTOMY;. 3 STENTS IN [facility]- [facility]- ;. [employer] LOOP RECORDER-(BECKY FROM [employer] OFFICE CALLED [facility] LOOP RECORDER IS DOWNLOADED EVERY NIGHT- DO IT IS OKAY TO HAVE AN MRI) Hx Anesthesia Reactions: No Infectious Disease History: No Infectious Disease History: Reports: History Other Infectious Disease - pt states has current uti Denies: Hx Clostridium Difficile, Hx Hepatitis, Hx Human Immunodeficiency Virus (HIV), Hx of Known/Suspected MRSA, Hx Shingles, Hx Tuberculosis, Hx Known/ Suspected VRE, Hx Known/Suspected VRSA, Traveled Outside the [place] in Last 30 Days - Family History Known Family History: Positive: Cardiac Disease - Paternal , Hypertension, Diabetes Family History: FHx of Breast CA - Mother, Grandmother. Positive diverticulitis to mother. - Social History Alcohol Use: None Substance Use Type: Reports: None Hx Tobacco Use: Yes Smoking Status (MU): Former Smoker Type: Cigarettes Amount Used/How Often: 1 pack day Length of Time of Smoking/Using Tobacco: 40 years Have You Smoked in the Last Year: No Review of Systems Negative: Fever Negative: Photophobia, Erythema Negative: Sore Throat Negative: Palpitations, Chest Pain Negative: Shortness Of Breath, Cough Positive: Abdominal Pain, Vomiting, Diarrhea, Nausea, Other - Blood noted in toilet seat after BM Negative: dysuria, hematuria Negative: Edema Negative: Rash Neurological: Other - negative dizziness Negative: Headache Negative: Anxious, Depressed All Other Systems Reviewed And Are Negative: Yes Physical Exam - Summary Physical Exam Summary: Constitutional: Well-developed, Well-nourished, Alert. (-) Distressed Skin: Warm to touch, Dry. Abrasion noted on LUE forearm. Pt reports it's due to a fall and rug burn. HENT: Normocephalic; Atraumatic Eyes: Conjunctiva normal Neck: Musculoskeletal ROM normal neck. (-) JVD, (-) Stridor, (-) Tracheal deviation Cardio: Rhythm regular, rate normal, Heart sounds normal; Intact distal pulses; The pedal pulses are 2+ and symmetric. Radial pulses are 2+ and symmetric. (-) Murmur Pulmonary/Chest wall: Effort normal. (-) Respiratory distress, (-) Wheezes, (-) Rales Abd: Soft, (+) Tenderness at LLQ, (-) Distension, (-) Guarding, (-) Rebound Musculoskeletal: (-) Edema Lymph: (-) Cervical adenopathy Neuro: Alert, Oriented x3 Psych: Mood and affect Normal Pt is strongly advised to walker to prevent fall injuries in future. Triage Information Reviewed: Yes Vital Signs On Initial Exam: Initial Vitals Temp Pulse Resp BP Pulse Ox 99.7 F 80 18 127/44 98 12/07/16 22:24 12/07/16 22:24 12/07/16 22:24 12/07/16 22:24 12/07/16 22:24 Vital Signs Reviewed: Yes - [place] Coma Scale Coma Scale Total: 15 Diagnostics - Vital Signs Vital Signs Temp Pulse Resp BP Pulse Ox 12/07/16 22:30 19 12/07/16 22:27 136/48 12/07/16 22:24 99.7 F 80 18 127/44 98 - Laboratory Result Diagrams: 12/07/16 22:45 12/07/16 22:45 Lab Statement: Any lab studies that have been ordered have been reviewed, and results considered in the medical decision making process. - CT Ab/P CT Interpretation: Positive (See Comments) - MOderate colitis extending from the proximal transverse colon to the rectum may be due to infection or inflammatory bowel dsease. Enlarged splenic hypodensity is only questionably a cyst, and may be f/u with US. Stable bilat renal scarring. Stable bilat adrenal nodularity may represent adenomas or beign hyperplasia. CT Interpretation Completed By: Radiologist Abdominal Pain Fem Course/Dx - Course Course Of Treatment: This 86 y/o female presents to ED for acute onset of abd pain and n/v/d since 1730 PM. Pt reports that she was diagnosed with Crohn's disease 5 years ago. Bloodwork indicates elevated WBC of 22.7, elevated lipase of 99, and creatinine of 1.83. CT Ab/P indicates colitis. Plan of care was discussed with hospitalist Dr. Monroe, who accepts pt's admission. - Diagnoses Provider Diagnoses: Abdominal pain, Colitis, Rectal bleeding - Provider Notifications Discussed Care Of Patient With: Dr. Monroe (Hospitalist) at 0307 AM Time Discussed With Above Provider: 03:07 Instructed by Provider To: Admit As Inpatient Discharge - Discharge Plan Condition: Stable Disposition: ADMITTED TO [facility] The documentation as recorded by the Joe cavazos Soohyun accurately reflects the service I personally performed and the decisions made by , Ashok Urias MD.
[2016-12-08] MEDS: NS 0.9% 1000 ML* 1,000 ML IV SCH (06:10)
[2016-12-08] MEDS: Acetaminophen TAB* 325 MG PO PRN ×2 (06:49→13:55)
--- NOTE | 2016-12-08 06:56 | HP ---
HISTORY AND PHYSICAL: DATE OF ADMISSION: 12/08/16 PRIMARY CARE PROVIDER: Carla Ramos NP AUTOMOTIVE SALESPERSON: Dr. Mars. CHIEF COMPLAINT: Abdominal pain and rectal bleeding. HISTORY OF PRESENT ILLNESS: Ms. Lang is an 86-year-old female who has a known history of Crohn's disease who last had a flare of Crohn's in June 2016 who presented to the emergency room with complaints of abdominal pain/cramping and rectal bleeding. The patient states that she had been feeling very well and at her baseline up until approximately 7 p.m. on the night prior to admission when she suddenly developed crampy abdominal pain. The patient went to the bathroom and had a bowel movement and noted that there was blood on the toilet paper, on the toilet seat and in the toilet bowl. The patient recognized this as possibly being her Crohn's disease, therefore she used Entocort enema. The patient then called 911. The patient was picked up by EMS and she states that maybe 3 [address], she informed the ambulance screw machine setter that she had to go to the bathroom very badly. She states they turned around and took her back to her house where she then had a very large bowel movement. She did not notice any blood in that bowel movement. The patient does note that she also vomited twice around 7 p.m. The patient is feeling somewhat better in the emergency room. She states her crampy abdominal pain is slightly improved. She has had one bowel movement in the ER. PAST MEDICAL HISTORY: 1. Crohn's disease. 2. Hypertension. 3. Type 2 diabetes. 4. Coronary artery disease. 5. RLS. 6. Stage 3 chronic kidney disease. 7. Hyperlipidemia. 8. GERD. 9. History of TIA x3. 10. RISHABH utilizing CPAP sporadically. PAST SURGICAL HISTORY: 1. Bilateral cataract extraction. 2. Left shoulder surgery. 3. Hemorrhoidectomy. 4. Oophorectomy. 5. Tonsillectomy. MEDICATIONS: 1. Januvia 25 mg p.o. daily. 2. Pravastatin 10 mg p.o. daily. 3. Nitroglycerin 0.4 mg subcu 5 minutes p.r.n. chest pain. 4. Lasix 20 mg p.o. daily. 5. Diltiazem XR 120 mg p.o. daily. 6. Celexa 20 mg p.o. daily. 7. Vitamin D3 2000 units p.o. daily. 8. Aspirin 81 mg p.o. daily. ALLERGIES: CODEINE, LEVAQUIN, and SIMVASTATIN. FAMILY HISTORY: Mom had coronary artery disease. Dad had bladder cancer and CT. SOCIAL HISTORY: The patient is a former smoker, she quit approximately 17 years ago. She does not drink alcohol. She is retired. She lives alone. Her son, Yair, was nearby and is her healthcare proxy. REVIEW OF SYSTEMS: The patient denies any fevers, chills, or anorexia. No chest pain. She does admit to chronic lower extremity pain. No cough or shortness of breath. She admits to vomiting x2 as noted above. She admits to the crampy abdominal pain as above. She has had bright red blood in her stool. No hematuria, no dysuria, no focal weakness. No sensory loss. No sudden changes in vision. No dysphagia. No joint pain or muscle pain out of the ordinary. No rashes. She does admit to anxiety and depression. PHYSICAL EXAMINATION GENERAL: The patient is a well-developed elderly female lying in a stretcher, in no acute distress. VITAL SIGNS: Blood pressure 128/67, pulse 97, respirations 14, temp 99.7, O2 sat 96% on room air. HEENT: Pupils are equal, round and reactive to light. There is no evidence of prior cataract extraction. Extraocular muscles are intact. Oropharynx is clear. Oral mucosa is moist. There is no submandibular, cervical, or supraclavicular adenopathy. Thyroid is not enlarged. No thyroid nodules are noted. PULMONARY: Lungs are clear to auscultation bilaterally except at the right base where crackles are heard. CARDIAC: Normal S1, S2. Regular rate and rhythm. I do not appreciate any murmurs. ABDOMEN: Bowel sounds are present. Abdomen is soft, nontender, nondistended. MUSCULOSKELETAL: There is no cyanosis or clubbing of the digits. There is full active range of motion. SKIN: Warm and dry. There are no rashes. NEUROLOGIC: Cranial nerves II through XII are grossly intact. Sensation is intact to light touch throughout. Strength is 5/5 and symmetric in both upper and lower extremities. PSYCH: The patient is alert, she is oriented x3. Affect appears appropriate. LABORATORY DATA: WBC 22.7, hemoglobin 14.3, hematocrit 44, platelets 251. Sodium 140, potassium 4.2, chloride 97, CO2 31, BUN 42, creatinine 1.83, glucose 141, lactic acid 1.4, calcium 9.1, bilirubin 0.7, AST 18, ALT 10, alk phos 81, albumin 3.7, lipase 99. Urinalysis reveals specific gravity of 1.011, 1+ blood, negative nitrite, positive leukocyte esterase, positive wbc, 4+ bacteria. Abdomen and pelvis CT reveals moderate colitis extending from the proximal transverse colon to the rectum, maybe due to infection or inflammatory bowel disease. An enlarged splenic hypodensity, it was questionably a cyst and may be followed up with ultrasound. Stable bilateral renal scarring is noted. Stable bilateral adrenal nodularity is also noted. ASSESSMENT AND PLAN: Ms. Lang is an 86-year-old female who developed a sudden onset of crampy abdominal pain with rectal bleeding on the evening prior to admission, is being admitted for evaluation of this. 1. Crampy abdominal pain and rectal bleeding. The differential diagnosis for this includes infectious colitis versus inflammatory bowel disease versus ischemic. I would lean towards probably her Crohn's being active versus perhaps an infectious colitis. The patient does have a marked leukocytosis at 22.7000. The patient will be started on Zosyn for antibiotic coverage given her LEVAQUIN allergy. I am going to hold off on starting steroids at this point , though will request a GI consultation. The patient's bowel movements and symptoms will be monitored closely. She states that she is feeling somewhat better already. 2. Hypertension. The patient's blood pressure is under good control. She will be maintained on her usual home medication regimen. 3. Type 2 diabetes. The patient's Januvia will be held and she will be started on lispro sliding scale q.a.c. 4. Hyperlipidemia. Continue statin. 5. Gastroesophageal reflux disease. 6. Obstructive sleep apnea. The patient will be ordered for CPAP with sleep. She does not have her machine here with her. 7. DVT prophylaxis. According to the Adult Thrombosis Prophylaxis Risk Factor Assessment Guide, the patient has a total risk factor score of 4, making her high risk. Given the rectal bleeding, I will hold on subcu heparin for now and utilize SCD's for DVT prophylaxis. 8. Code status is DNR. TIME SPENT: Sixty-five minutes was spent admitting this patient. CC: Dr. Mars; Carla Ramos, EVIE* [id number]/[facility] #: [id number] [facility] HOSPITALMaría Elena
--- NOTE | 2016-12-08 07:47 | RAD ---
CLINICAL HISTORY: Left lower quadrant tenderness, vomiting COMPARISON: August 17, 2015 TECHNIQUE: Multiple contiguous axial CT scans were obtained of the abdomen and pelvis after the administration of intravenous contrast. Coronal and sagittal multiplanar reformations are submitted for review. Oral contrast was administered. Delayed images were obtained through the abdomen and pelvis. FINDINGS: LUNG BASES: The lung bases are clear. LIVER: The liver is normal in shape, size, contour, and attenuation. BILE DUCTS: There is no intrahepatic or extrahepatic biliary dilatation. GALLBLADDER: The gallbladder is normal, without pericholecystic inflammatory change. PANCREAS: There is mild prominence of the pancreatic duct without cutoff. There is no appreciable pancreatic mass SPLEEN: There is a low-attenuation lesion of the spleen measuring 0.7 cm in size, best seen on axial image 14. UPPER GI TRACT: Evaluation of the gastrointestinal tract is limited by incomplete gastric distention. The upper GI tract is unremarkable. SMALL BOWEL AND MESENTERY: The small bowel is normal in contour, course, and caliber. There is no obstruction or dilatation. COLON: There is diffuse mucosal thickening of the descending colon with stranding of the pericolonic fat. There is no significant diverticulosis ADRENALS: Again noted is diffuse nodular enlargement of the adrenal glands bilaterally KIDNEYS: There is diffuse renal cortical parenchymal thinning. Multiple renal cortical defects are noted. There is no appreciable hydronephrosis or nephrolithiasis BLADDER: The bladder is smooth in contour. PELVIC ORGANS: There is calcified uterine fibroid. The pelvic organs are otherwise unremarkable. AORTA: There is calcific atherosclerotic disease of the abdominal aorta and its branches, without aneurysmal dilatation. The inferior mesenteric artery is patent. IVC: Unremarkable LYMPH NODES: There is no lymphadenopathy by size criteria. ABDOMINAL WALL: There is a small fat-containing umbilical hernia. BONES AND SOFT TISSUES: Degenerative changes are noted of the spine OTHER: None IMPRESSION: 1. DIFFUSE MUCOSAL THICKENING AND PERICOLIC INFLAMMATORY CHANGE OF THE DESCENDING COLON, MOST CONSISTENT WITH COLITIS. 2. SMALL LOW-ATTENUATION LESION OF THE SPLEEN. THE DIFFERENTIAL INCLUDES A SMALL CYST VERSUS HEMANGIOMA, THOUGH THE IMAGING APPEARANCE IS INDETERMINATE. RECOMMEND CONSIDERATION OF FURTHER EVALUATION WITH ULTRASOUND IMAGING OF THE SPLEEN.
[2016-12-08] MEDS: CMCS Pravastatin (NF) 20 MG TAB PO SCH (09:13)
[2016-12-08] MEDS: Citalopram TAB* 20 MG PO SCH (09:15)
[2016-12-08] MEDS: Diltiazem CD CAP* 120 MG PO SCH (09:16)
[2016-12-08] MEDS: Insulin LISPRO* 1 UNITS UNIT SUBCUT SCH ×3 (09:19→16:46)
[2016-12-08] MEDS ORDERED: Piperac/Tazob 3.375 gm in NS* 3.375 GM/100 ML BAG IVPB SCH (10:00)
[2016-12-08 10:47] LABS: Hematocrit 37 % (35-47); Hemoglobin 12.3 g/dl (12.0-16.0); Mean Corpuscular HGB Conc 33 g/dl (31-36); Mean Corpuscular Hemoglobin 30 pg (27-31); Mean Corpuscular Volume 90 fL (80-97); Mean Platelet Volume 7 um3 (7.4-10.4); Red Blood Count 4.13 10^6/ul (4.0-5.4); Red Cell Distribution Width 13 % (10.5-15); White Blood Count 16.3 10^3/ul (3.5-10.8)
[2016-12-08] MEDS ORDERED: Simethicone CHEW TAB* 80 MG PO PRN (10:57)
[2016-12-08 11:04] LABS: BUN/Creatinine Ratio 21.1 (8-20); Calcium 8.3 mg/dL (8.6-10.3); EGFR African American 43.3 (>60); EGFR Non-African American 33.7 (>60); Potassium 3.8 mmol/L (3.5-5.0)
--- NOTE | 2016-12-08 14:19 | PN ---
Hospitalist Progress Note HOSPITALIST ADDENDUM Patient seen and examined at bedside. C/o crampy abdominal pain and bloody BMs. States her last colonoscopy was [address] Mars told her she had inflammation and prescribed prednisone and an enema she used for a couple weeks with some improvement. GI consult requested. Suspect this is likely another flare as she stopped using her enemas.
[2016-12-08] MEDS: Piperac/Tazob 3.375 gm in NS* 3.375 GM/100 ML BAG IVPB SCH (17:51)
[2016-12-09] MEDS: NS 0.9% 1000 ML* 1,000 ML IV SCH (00:14)
--- NOTE | 2016-12-09 01:04 | CONS ---
CONSULTATION REPORT: DATE OF CONSULTATION: 12/08/16 REQUESTING PHYSICIAN: Dr. Monroe. INDICATION: Abdominal pain, history of Crohn's disease. NARRATIVE: Ms. Lang is a very pleasant 86-year-old female well-known to myself. She has a long history of Crohn's disease. It seems that her Crohn's had been burned out up until the fall this year. She did develop a flight flare of her Crohn's which was the first time in a very long period of time. I did confirm this with a flexible sigmoidoscopy, which revealed left-sided colitis and biopsies were consistent with colitis. She was put on prednisone and did well. She states that since that point she has been doing great up until late last night. While lying on the sofa, she developed severe abdominal cramping. She did have some slight loose stool, but she has been more constipated up until this point and having any diarrhea. She said this really does not feel like her Crohn's disease, however. She is not on any medications for her Crohn's disease. No recent antibiotics. No sick contacts. She was noted to have a white count of 22.7. She was admitted to the hospital after the CT showed left-sided colitis. She was started on antibiotics for presumptive infectious colitis and she states that she feels at least 50% better at this time. She still is having slight cramps. She does not have much of an appetite right now. PAST MEDICAL HISTORY: Significant for Crohn's disease, not on any medications right now. She also has a history of hypertension, diabetes, coronary artery disease, kidney disease, GERD. She does have sleep apnea. PAST SURGICAL HISTORY: Surgeries include: 1. Cataract. 2. Shoulder surgery. 3. Hemorrhoids. 4. Tonsillectomy. MEDICATIONS: Upon admission include: 1. Januvia. 2. Pravastatin. 3. Nitroglycerin. 4. Lasix. 5. Diltiazem. 6. Celexa. 7. Aspirin. 8. Vitamin D3. ALLERGIES: To CODEINE, LEVAQUIN, and SIMVASTATIN. FAMILY HISTORY: Positive for coronary artery disease and bladder cancer. SOCIAL HISTORY: She does not drink or smoke. She lives alone. She has a son that lives nearby. REVIEW OF SYSTEMS: 12 systems were reviewed, other than that mentioned in the HPI were unremarkable. PHYSICAL EXAMINATION: Temperature is 97.5, blood pressure 114/51, pulse is 78. General: Well-appearing female, appears her stated age. Alert, oriented, pleasant, and fluent. HEENT: Mucous membranes are moist without lesions, ulcers, or exudate. Head is normocephalic, atraumatic. Neck is supple. Trachea is midline. Heart: Regular rate and rhythm. Lungs: Clear to auscultation. Abdomen: Slightly obese. Positive bowel sounds. Soft, mild diffuse tenderness. No rebound. No guarding. No masses. Skin is warm and dry. DIAGNOSTIC STUDIES/LAB DATA: Labs of note, her white count has fallen from 22.7 to 16.3, hemoglobin is 12.3, platelets of 194, BUN 31, creatinine is 1.47. She did have a CT abdomen and pelvis, which showed left-sided colitis. ASSESSMENT AND PLAN: This is an 86-year-old female with a CT showing colitis; however, not having much diarrhea, but having crampy abdominal pain. Differential would include Crohn's disease versus ischemic versus infectious. She was empirically started on Zosyn last night and the patient states that she feels at least 50% better at this point. She has not been treated for inflammatory bowel disease. Given her white count, I would favor infectious; however, lack of diarrhea makes me think less of an infectious cause. I am not convinced yet of this her Crohn's. I think we should continue with the Zosyn and we will continue to follow along very closely. CC: Carla Ramos NP* [id number]/[facility] #: [id number] MTDD
[2016-12-09] MEDS: Piperac/Tazob 3.375 gm in NS* 3.375 GM/100 ML BAG IVPB SCH ×3 (02:23→18:03)
[2016-12-09 05:40] LABS: Hematocrit 38 % (35-47); Hemoglobin 12.2 g/dl (12.0-16.0); Mean Corpuscular HGB Conc 32 g/dl (31-36); Mean Corpuscular Hemoglobin 30 pg (27-31); Mean Corpuscular Volume 91 fL (80-97); Mean Platelet Volume 7 um3 (7.4-10.4); Red Blood Count 4.14 10^6/ul (4.0-5.4); Red Cell Distribution Width 13 % (10.5-15); White Blood Count 19.2 10^3/ul (3.5-10.8)
[2016-12-09 05:55] LABS: BUN/Creatinine Ratio 16.5 (8-20); EGFR African American 54.3 (>60); EGFR Non-African American 42.2 (>60); Potassium 3.5 mmol/L (3.5-5.0)
[2016-12-09] MEDS: Insulin LISPRO* 1 UNITS UNIT SUBCUT SCH ×3 (07:20→17:03)
[2016-12-09] MEDS: CMCS Pravastatin (NF) 20 MG TAB PO SCH (09:46)
[2016-12-09] MEDS: Citalopram TAB* 20 MG PO SCH (09:48)
[2016-12-09] MEDS: Diltiazem CD CAP* 120 MG PO SCH (09:48)
--- NOTE | 2016-12-09 16:23 | PN ---
Subjective Date of Service: 12/09/16 Interval History: HOSPITALIST PROGRESS NOTE Patient seen and examined at bedside. She feels better today. Still has crampy abdominal pain, but less intense, down to 2-3/10. One small, soft, brown BM earlier today. Feels hungry, wants to advanced diet. Denies N/V. Family History: Unchanged from Admission Social History: Unchanged from Admission Past Medical History: Unchanged from Admission Objective Active Medications: Acetaminophen (Tylenol Tab*) 650 mg PO Q4H PRN PRN Reason: PAIN Last Admin: 12/08/16 13:55 Dose: 650 mg Citalopram Hydrobromide (Celexa Tab*) 20 mg PO DAILY [facility] Last Admin: 12/09/16 09:48 Dose: 20 mg Dextrose (D50w Syringe 50 Ml*) 12.5 gm IV PUSH .FOR FS < 60 - SS PRN PRN Reason: FS < 60 Diltiazem HCl (Cardizem Cd Cap*) 120 mg PO DAILY [facility] Last Admin: 12/09/16 09:48 Dose: 120 mg Piperacillin Sod/Tazobactam Sod (Zosyn 3.375 Gm In Ns Premix*) 3.375 gm in 100 mls @ 25 mls/hr IVPB Q8H [facility] Last Admin: 12/09/16 09:50 Dose: 25 mls/hr Insulin Human Lispro (Humalog*) 0 units SUBCUT AC [facility] PRN Reason: Protocol Last Admin: 12/09/16 12:41 Dose: 3 units Morphine Sulfate (Morphine Inj (Syringe)*) 2 mg IV Q4H PRN PRN Reason: PAIN - MILD Last Admin: 12/08/16 09:24 Dose: 2 mg Ondansetron HCl (Zofran Inj*) 4 mg IV Q6H PRN PRN Reason: NAUSEA Pravastatin Sodium (Pravachol (Nf)) 10 mg PO DAILY [facility] PRN Reason: Protocol Last Admin: 12/09/16 09:46 Dose: 10 mg Simethicone (Mylicon*) 80 mg PO Q6H PRN PRN Reason: Gas Vital Signs 12/09/16 12/09/16 12/09/16 07:17 08:00 15:28 Temperature 97.4 F Pulse Rate 84 84 Respiratory 16 16 18 Rate Blood Pressure 127/54 120/81 (mmHg) O2 Sat by Pulse 97 95 Oximetry Oxygen Devices in Use Now: None Appearance: Elderly lady lying in bed in NAD. Eyes: No Scleral Icterus Ears/Nose/Mouth/Throat: Mucous Membranes Moist Neck: Trachea Midline Respiratory: Symmetrical Chest Expansion and Respiratory Effort, Clear to Auscultation Cardiovascular: NL Sounds; No Murmurs; No JVD, RRR Abdominal: - - Soft, mild LLQ tenderness, no guarding or rebound, BS+ and increased Extremities: No Edema Neurological: Alert and Oriented x 3, NL Muscle Strength and Tone Lines/Tubes/Other Access: Clean, Dry and Intact Peripheral IV Nutrition: Taking PO's Result Diagrams: 12/09/16 05:27 12/09/16 05:26 Assess/Plan/Problems-Billing Assessment: Mrs. Lang is an 86yo F with PMH of Crohn's disease, HTN, type 2 diabetes, CAD, restless leg syndrome, CKD stage 3, HLD, GERD, TIAx3, RISHABH, who presented to ED with c/o crampy abdominal pain, found to have colitis. - Patient Problems (1) Colitis Comment: - GI input appreciated - feels colitis is likely infectious as she had improvement with antibiotics. - Stool culture pending. - Advance diet as tolerated. (2) HTN (hypertension) Comment: - Controlled. - Continue diltiazem. (3) Type 2 diabetes mellitus Comment: - Continue FS and Lispro SS. (4) Hyperlipidemia Comment: - Continue statin. (5) DVT prophylaxis Comment: - SCDs. (6) Full code status Status and Disposition: Inpatient.
[2016-12-10] MEDS: Piperac/Tazob 3.375 gm in NS* 3.375 GM/100 ML BAG IVPB SCH ×2 (02:20→09:38)
[2016-12-10] MEDS: Insulin LISPRO* 1 UNITS UNIT SUBCUT SCH ×2 (07:23→12:22)
[2016-12-10] MEDS: CMCS Pravastatin (NF) 20 MG TAB PO SCH (08:51)
[2016-12-10] MEDS: Diltiazem CD CAP* 120 MG PO SCH (08:52)
[2016-12-10] MEDS: Citalopram TAB* 20 MG PO SCH (08:52)
[2016-12-10 09:00] LABS: Hematocrit 37 % (35-47); Hemoglobin 11.9 g/dl (12.0-16.0); Mean Corpuscular HGB Conc 32 g/dl (31-36); Mean Corpuscular Hemoglobin 29 pg (27-31); Mean Corpuscular Volume 91 fL (80-97); Mean Platelet Volume 7 um3 (7.4-10.4); Red Blood Count 4.05 10^6/ul (4.0-5.4); Red Cell Distribution Width 13 % (10.5-15); White Blood Count 16.2 10^3/ul (3.5-10.8)
[2016-12-10 13:47] VITALS: BP 102/41
--- NOTE | 2016-12-11 09:52 | DS ---
DISCHARGE SUMMARY: DATE OF ADMISSION: 12/08/16 DATE OF DISCHARGE: 12/10/16 PRIMARY CARE PROVIDER: Carla Ramos NP CONTINUITY CLERK: Dr. Mars. DISCHARGE DIAGNOSES: 1. Infectious colitis. 2. Hematochezia secondary to the above. 3. Leukocytosis. 4. Acute on chronic renal failure secondary to dehydration. SECONDARY DIAGNOSES: 1. Crohn's disease. 2. Hypertension. 3. Type 2 diabetes. 4. Coronary artery disease. 5. Restless legs syndrome. 6. Chronic kidney disease, stage 3. 7. Hyperlipidemia. 8. Gastroesophageal reflux disease. 9. History of transient ischemic attack x3. 10. Obstructive sleep apnea, noncompliant with CPAP. MEDICATION LIST: 1. Nitroglycerin 0.4 mg sublingual q.5 minutes p.r.n. chest pain. 2. Pravastatin 10 mg p.o. daily. 3. Furosemide 20 mg p.o. daily. 4. Diltiazem 120 mg p.o. daily. 5. Cholecalciferol 2000 units p.o. daily. 6. Aspirin 81 mg p.o. daily. 7. Januvia 25 mg p.o. daily. 8. Citalopram 20 mg p.o. daily. New medications: 1. Simethicone 80 mg p.o. q.6 hours as needed for gas. 2. Augmentin 875 mg p.o. b.i.d. for 10 more days. HOSPITAL COURSE: Ms. Lang is an 86-year-old lady with a past medical history as stated above that presented to the emergency room with complaints of crampy abdominal pain and bright red blood in the stool. Two to three months ago, the patient had a flare-up of her Crohn's disease and was started on prednisone and Entocort enema. She states that in a couple of days, she was doing better and she discontinued the medications and was feeling well until the night prior to admission when she suddenly developed crampy abdominal pain followed by a bowel movement where she noted some bright red blood. For more details about her presentation, I refer you to her history and physical. In the emergency room, the patient had a CT of the abdomen and pelvis that showed diffuse mucosal thickening and pericolic inflammatory change of the descending colon, most consistent with colitis. Small low attenuation lesions of the spleen. Differential includes small cyst versus hemangioma. Though the imaging appearance is indeterminate, recommend consideration of further evaluation with ultrasound imaging of the spleen. This can be pursued as outpatient. The patient was started on Zosyn empirically and there was concern this colitis could represent a flare of her Crohn's disease or infectious colitis. The patient had significant leukocytosis on admission of 22,000, but she did not meet sepsis criteria. She was seen in consultation by Gastroenterology (Dr. Mars) and after reviewing her case, his impression was that the differential would include Crohn 's disease versus ischemic colitis versus infectious colitis. The patient had been empirically started on Zosyn and she was already feeling 50% better when he saw her, so he felt that given her white count, her response to antibiotics, this would likely favor infectious etiology. The patient continued to improve with resolution of her crampy abdominal pain. She is still having loose stools , but they are not bloody any more. She is able to tolerate an oral diet with no symptoms and her white cell count is trending down to 16 on the day of discharge. The patient was felt to be stable for discharge at this time. PHYSICAL EXAMINATION: Vital Signs: Temperature 98.6, heart rate is 73, respiratory rate is 93% on room air, and blood pressure is 125/41. General: The patient is a pleasant, elderly lady, lying in the bed, in no acute distress. CVS: Normal S1 and S2, regular rate and rhythm. Chest: Breath sounds bilaterally, no added sounds. Abdomen is obese, soft, nontender, and nondistended with bowel sounds mildly increased. Extremities: No edema. Neuro : She is alert, awake, and oriented x3. Able to move all 4 extremities. DIET: Heart-healthy, consistent carb diet. ACTIVITY: As tolerated. DISPOSITION: To home. STATUS WHILE IN THE HOSPITAL: Inpatient. Please keep in mind this is a summarized version of this patient's hospital stay. If you need more information, please feel free to call me at [phone] or please obtain the full medical record. The patient will follow up with her primary care provider Carla Ramos NP, on December 16 at 1:20 p.m. TIME SPENT: Approximately 40 minutes was spent to complete this discharge. CC: Carla Ramos NP; Dr. Mars* [id number]/[facility] #: [id number] [facility]
== END 2016-12-10 14:30 | disposition home or self-care (01) | DRG 392 ==
LOC: ED 22:19 → MED 12-08 05:13
PROVIDERS: ADMIT Hospitalist; ATTEND Internal Medicine
DX: A09 Infectious gastroenteritis and colitis, unspecified (principal); N17.9 Acute kidney failure, unspecified; E11.22 Type 2 diabetes mellitus with diabetic chronic kidney disease; K50.90 Crohn's disease, unspecified, without complications; J44.9 Chronic obstructive pulmonary disease, unspecified; K92.1 Melena; E78.00 Pure hypercholesterolemia, unspecified; I25.10 Atherosclerotic heart disease of native coronary artery without angina pectoris; K21.9 Gastro-esophageal reflux disease without esophagitis; M19.90 Unspecified osteoarthritis, unspecified site; H91.90 Unspecified hearing loss, unspecified ear; F32.9 Major depressive disorder, single episode, unspecified; F41.9 Anxiety disorder, unspecified; G47.33 Obstructive sleep apnea (adult) (pediatric); G25.81 Restless legs syndrome; E78.5 Hyperlipidemia, unspecified; Z66 Do not resuscitate; D72.829 Elevated white blood cell count, unspecified; I12.9 Hypertensive chronic kidney disease with stage 1 through stage 4 chronic kidney disease, or unspecified chronic kidney disease; N18.3 Chronic kidney disease, stage 3 (moderate); E86.0 Dehydration; Z88.1 Allergy status to other antibiotic agents; Z88.5 Allergy status to narcotic agent; Z88.8 Allergy status to other drugs, medicaments and biological substances; Z95.5 Presence of coronary angioplasty implant and graft; Z97.4 Presence of external hearing-aid; Z91.5 Personal history of self-harm; Z85.828 Personal history of other malignant neoplasm of skin; Z83.3 Family history of diabetes mellitus; Z82.49 Family history of ischemic heart disease and other diseases of the circulatory system; Z80.3 Family history of malignant neoplasm of breast; Z84.89 Family history of other specified conditions; Z87.891 Personal history of nicotine dependence; Z98.42 Cataract extraction status, left eye; Z98.41 Cataract extraction status, right eye; Z86.73 Personal history of transient ischemic attack (TIA), and cerebral infarction without residual deficits; Z80.52 Family history of malignant neoplasm of bladder; Z79.82 Long term (current) use of aspirin; I25.2 Old myocardial infarction
CPT/HCPCS: 36415; 74177; 80048; 80053; 81003; 81015; 82272; 83605; 83690; 85025; 85027; 87045; 87046; 87077; 87086; 87186; 87899; 94660; A9270-GY; J0696; J2270; J2405; J2543; Q9967

== ENCOUNTER 2017-01-22 10:47 | Emergency (ER) | payer MEDICARE, BC ==
--- NOTE | 2017-01-22 11:24 | UC ---
Knee Pain HPI - HPI Summary HPI Summary: Fell forward onto the L knee in November and was seen here the next day, had an x- ray at that time which was read as normal. Was told to come back if her pain didn't get better, and she says it has been aching ever since. Sometimes gets pain up the back of her leg into her back. Does not want to see orthopedist or consider knee surgery. Pt has had trouble with falls for more than 2 years, has had testing and PT without sustained help. - History of Current Complaint Chief Complaint: UCLowerExtremity Stated Complaint: KNEE INJURY Time Seen by Provider: 01/22/17 11:05 Hx Obtained From: Patient Hx Last Menstrual Period: NA ?: No Onset/Duration: Sudden Onset Severity Initially: Mild Severity Currently: Mild Character: Dull, Aching, Stiffness Alleviating Factor(s): Rest Associated Signs And Symptoms: Positive: Swelling Able to Bear Weight: Yes - Allergies/Home Medications Allergies/Adverse Reactions: Allergies Allergy/AdvReac Type Severity Reaction Status Date / Time Levofloxacin [From Levaquin] Allergy Hives/Diff. Verified 12/08/16 03:56 Breathing/I tching Codeine AdvReac Unknown Nausea Verified 12/08/16 03:56 Simvastatin [From Zocor] AdvReac Unknown Leg Cramps Verified 12/08/16 03:56 PMH/Surg Hx/FS Hx/Imm Hx Endocrine History: Diabetes Cardiovascular History: Cardiac Disease, Hypertension Respiratory History: COPD Other History Of: Anticoagulant Therapy Negative For: HIV, Hepatitis B - Aspirin 81 mg/day., Hepatitis C - Surgical History Surgical History: Yes Surgery Procedure, Year, and Place: PERFORATED EAR DRUM X2;. PARTIAL HYSTERECTOMY;. SHOULDER SURGERY ;. 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 HEMHORROIDECTOMY;. 3 STENTS IN HEART- [facility]- ;. [employer] LOOP RECORDER-([facility] FROM [facility] OFF[facility] CALLED [facility] LOOP RECORDER IS DOWNLOADED EVERY NIGHT- DO IT IS OKAY TO HAVE AN MRI) - Family History Known Family History: Positive: Cardiac Disease - Paternal , Hypertension, Diabetes Family History: FHx of Breast CA - Mother, Grandmother. Positive diverticulitis to mother. - Social History Alcohol Use: None Substance Use Type: None Smoking Status (MU): Former Smoker Type: Cigarettes Amount Used/How Often: 1 pack day Length of Time of Smoking/Using Tobacco: 40 years Have You Smoked in the Last Year: No When Did the Patient Quit Smoking/Using Tobacco: 1999 - Immunization History Most Recent Influenza Vaccination: 02/2016 Most Recent Tetanus Shot: date unknown Most Recent Pneumonia Vaccination: 2008 Review of Systems Constitutional: Negative Skin: Negative Eyes: Negative ENT: Negative Respiratory: Negative Cardiovascular: Negative Gastrointestinal: Negative Genitourinary: Negative Motor: Negative Neurovascular: Negative Musculoskeletal: Arthralgia, Decreased ROM Neurological: Negative Psychological: Negative All Other Systems Reviewed And Are Negative: Yes Physical Exam Triage Information Reviewed: Yes Appearance: Well-Appearing, No Pain Distress, Well-Nourished Vital Signs: Initial Vital Signs Temp 98 F 01/22/17 10:53 Pulse 80 01/22/17 10:53 Resp 16 01/22/17 10:53 Pulse Ox 100 01/22/17 10:53 Vital Signs Reviewed: Yes Eye Exam: Normal Eyes: Positive: Conjunctiva Clear ENT Exam: Normal ENT: Positive: Normal ENT inspection, Hearing grossly normal, Pharynx normal Dental Exam: Normal Neck exam: Normal Neck: Positive: Supple, Nontender, No Lymphadenopathy Respiratory Exam: Normal Respiratory: Positive: Chest non-tender, Lungs clear, Normal breath sounds, No respiratory distress, No accessory muscle use Cardiovascular Exam: Normal Cardiovascular: Positive: RRR, No Murmur Musculoskeletal: Positive: ROM Limited @ - L knee Neurological Exam: Normal Neurological: Positive: Alert Psychological Exam: Normal Skin Exam: Normal Knee Pain Course/Dx - Differential Dx/Diagnosis Provider Diagnoses: L knee pain Discharge - Discharge Plan Condition: Stable Disposition: HOME Prescriptions: Naproxen Sodium [Naproxen Sodium 275 MG TAB] 275 mg PO BID PRN #10 tab PRN Reason: pain Patient Education Materials: Knee Pain (ED) Referrals: Rachel LEWIS COTTAGE ATTENDANTCarla [Primary Care Provider] - Additional Instructions: Start physical therapy, use the naproxen as needed for pain, and follow up with your primary care provider. If your pain is worsening despite these measures, you may need an MRI to look for problems that may need surgery.
--- NOTE | 2017-01-22 12:18 | RAD ---
HISTORY: Remote trauma, left knee pain COMPARISONS: November 25, 2016 VIEWS: 4, Frontal, lateral, axial, and oblique views of the left knee FINDINGS: BONE DENSITY: Normal. BONES: There is no displaced fracture. JOINTS: There is mild osteoarthritis. There is no suprapatellar joint effusion or lipohemarthrosis. ALIGNMENT: There is no dislocation. SOFT TISSUES: Unremarkable. OTHER FINDINGS: None. IMPRESSION: NO ACUTE OSSEOUS INJURY. IF SYMPTOMS PERSIST, RECOMMEND REPEAT IMAGING.
== END 2017-01-22 12:00 | disposition home or self-care (01) ==
LOC: UCEAST 10:47
DX: M25.562 Pain in left knee (principal); Z95.818 Presence of other cardiac implants and grafts; J44.9 Chronic obstructive pulmonary disease, unspecified; Z87.891 Personal history of nicotine dependence
CPT/HCPCS: 99212; G0463

== ENCOUNTER → 2017-01-24 17:26 | Emergency (ER) | payer MEDICARE, BC ==
[2017-01-24 17:49] VITALS: BP 148/51
--- NOTE | 2017-02-10 10:13 | ED ---
Lower Extremity - HPI Summary HPI Summary: Patient notes to right knee pain fell forward onto the L knee in November and was seen here the next day, had an x-ray at that time which was read as normal. Was told to come back if her pain didn't get better, and she says it has been aching ever since. She declines wanting to see and orthopedist or consider knee surgery. Pt has had trouble with falls for more than 2 years, has had testing and PT without sustained help. She was seen then 2 days ago at and now is here. It was explained to patient we would be unable to much more for her since she has had the recommended imaging. I have offered pain management, but she has this at home. I have given her a referral, but she states she will not use it. Denies other pain, symptoms, Denies numbness, tingling, temperature or color changes to the area. - History of Current Complaint Chief Complaint: EDExtremityLower Stated Complaint: LEFT LEG PAIN Hx Obtained From: Patient Hx Last Menstrual Period: NA Mechanism Of Injury: Blunt Trauma Onset of Pain: Immediate Onset/Duration: Weeks Severity Initially: Moderate Severity Currently: Moderate Pain Intensity: 8 Pain Scale Used: 0-10 Numeric Timing: Constant Location: Is Discrete @ - right knee Associated Signs And Symptoms: Positive: Negative Aggravating Factor(s): Standing, Ambulation Alleviating Factor(s): Rest Able to Bear Weight: No - Risk Factors Gout Risk Factors: Age Over 40 DVT Risk Factors: Negative Septic Arthritis Risk Factor: Negative - Allergies/Home Medications Allergies/Adverse Reactions: Allergies Allergy/AdvReac Type Severity Reaction Status Date / Time Levofloxacin [From Levaquin] Allergy Hives/Diff. Verified 12/08/16 03:56 Breathing/I tching Codeine AdvReac Unknown Nausea Verified 12/08/16 03:56 Simvastatin [From Zocor] AdvReac Unknown Leg Cramps Verified 12/08/16 03:56 PMH/Surg Hx/FS Hx/Imm Hx Previously Healthy: Yes Endocrine/Hematology History: Reports: Hx Anticoagulant Therapy, Hx Diabetes - TYPE 2 Denies: Hx Thyroid Disease Cardiovascular History: Reports: Hx Angina, Hx Congestive Heart Failure - She states that she may have CHF., Hx Coronary Artery Disease, Hx Hypercholesterolemia, Hx Hypertension, Hx Myocardial Infarction - Pt states that she may have had an MS in 2004., Hx Syncope - "Possible syncopal episodes" , Other Cardiovascular Problems/Disorders - STENTS Denies: Hx Deep Vein Thrombosis, Hx Pacemaker/ICD Respiratory History: Reports: Hx Chronic Obstructive Pulmonary Disease (COPD), Hx Sleep Apnea - CPAP Denies: Hx Asthma, Hx Lung Cancer, Hx Pneumonia, Hx Pulmonary Embolism GI History: Reports: Hx Crohn's Disease, Hx Gastroesophageal Reflux Disease, Hx Ulcer - Also ulcerative colitis? Crohn's? Denies: Hx Gall Bladder Disease, Hx Gastrointestinal Bleed, Hx Urosepsis History: Reports: Hx Kidney Infection, Other Problems/Disorders - Pt of hessons in past Denies: Hx Kidney Stones, Hx Renal Disease Musculoskeletal History: Reports: Hx Arthritis, Hx Back Problems, Hx Bursitis - shoulders, Hx Tendonitis - shoulders, Other Musculoskeletal History - "joint pain" Denies: Hx Scoliosis Sensory History: Reports: Hx Contacts or Glasses, Hx Hearing Aid, Hx Hearing Problem Opthamlomology History: Reports: Hx Contacts or Glasses Neurological History: Reports: Hx Headaches - AND NAUSEA, Other Neuro Impairments/Disorders - LEFT SHOULDER SURGERY Denies: Hx Dementia, Hx Developmental Delay, Hx Migraine, Hx Seizures, Hx Transient Ischemic Attacks (TIA) Psychiatric History: Reports: Hx Anxiety, Hx Depression, Hx Suicide Attempt Denies: Hx Panic Disorder, Hx Schizophrenia, Hx Bipolar Disorder - Cancer History Cancer Type, Location and Year: skin cancer 1999 - Surgical History Surgery Procedure, Year, and Place: PERFORATED EAR DRUM X2;. PARTIAL HYSTERECTOMY;. SHOULDER SURGERY ;. 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 HEMHORROIDECTOMY;. 3 STENTS IN [facility]- [facility]- ;. [facility] [employer] LOOP RECORDER-([facility] FROM [employer] OFFICE CALLED [facility] LOOP RECORDER IS DOWNLOADED EVERY NIGHT- DO IT IS OKAY TO HAVE AN MRI) Hx Anesthesia Reactions: No - Immunization History Hx Pertussis Vaccination: No Immunizations Up to Date: Unable to Obtain/Confirm Infectious Disease History: No Infectious Disease History: Denies: Hx Clostridium Difficile, Hx Hepatitis, Hx Human Immunodeficiency Virus (HIV), Hx of Known/Suspected MRSA, Hx Shingles, Hx Tuberculosis, Hx Known/ Suspected VRE, Hx Known/Suspected VRSA, History Other Infectious Disease - pt states has current uti, Traveled Outside the [place] in Last 30 Days - Family History Known Family History: Positive: Cardiac Disease - Paternal , Hypertension, Diabetes Family History: FHx of Breast CA - Mother, Grandmother. Positive diverticulitis to mother. - Social History Occupation: Unemployed Lives: With Family Alcohol Use: None Hx Substance Use: No Substance Use Type: Reports: None Hx Tobacco Use: Yes Smoking Status (MU): Former Smoker Type: Cigarettes Amount Used/How Often: 1 pack day Length of Time of Smoking/Using Tobacco: 40 years Have You Smoked in the Last Year: No Review of Systems Constitutional: Negative Eyes: Negative Cardiovascular: Negative Respiratory: Negative Positive: Shortness Of Breath Positive: no symptoms reported, see HPI Positive: Arthralgia - right knee pain Skin: Negative Neurological: Negative All Other Systems Reviewed And Are Negative: Yes Physical Exam Triage Information Reviewed: Yes Vital Signs On Initial Exam: Initial Vitals Temp Pulse Resp BP Pulse Ox 97 F 85 18 148/51 97 01/24/17 17:46 01/24/17 17:46 01/24/17 17:46 01/24/17 17:46 01/24/17 17:46 Vital Signs Reviewed: Yes Appearance: Positive: Well-Appearing, Well-Nourished Skin: Positive: Warm, Skin Color Reflects Adequate Perfusion Head/Face: Positive: Normal Head/Face Inspection Eyes: Positive: EOMI, CRIS, Conjunctiva Clear Neck: Positive: Supple, No Lymphadenopathy Respiratory/Lung Sounds: Positive: Clear to Auscultation, Breath Sounds Present Cardiovascular: Positive: Normal, RRR, Pulses are Symmetrical in both Upper and Lower Extremities Musculoskeletal: Positive: Limited @ - right knee flexion and extension d/t pain Neurological: Positive: Sensory/Motor Intact, Alert, Oriented to Person Place, Time, Speech Normal Psychiatric: Positive: Normal Diagnostics - Vital Signs Vital Signs Temp Pulse Resp BP Pulse Ox 01/24/17 17:48 97 F 85 18 148/51 98 01/24/17 17:46 97 F 85 18 148/51 97 - Laboratory Lab Statement: Any lab studies that have been ordered have been reviewed, and results considered in the medical decision making process. Lower Extremity Course/Dx - Course Course Of Treatment: Thorough physical exam was performed, focusing on knee special tests. Pain on palpation over lateral aspect and superior aspect of knee with mild amount of effusion. Due to patient pain around injury, physical exam was limited. Valgus and varus force without pain. No posterior sag sign, negative posterior drawer test, + anterior drawer test. Quadriceps active test negative. Negative mcmurrys test. No laxity in the joint noted. No temperature change or pallor noted bilaterally. No ecchymosis noted over knee. No lesion or disruption of skin is seen. Unable to bear weight. Pulses intact bilaterally. Knee was ricco wrapped to patient comfort to allow for immobilization for this period of time. Patient given orthopedic follow up in 5 -7 days. Encouraged Ibuprofen 600mg three times daily with meals for pain. Return precautions given. Educated patient regarding ankle injuries and healing time and the possibility of further evaluation and imaging as orthopedist sees fit. - Diagnoses Differential Diagnosis/HQI/PQRI: Positive: Contusion, Fracture (Closed), Fracture (Open), Strain Provider Diagnoses: Contusion of right knee Discharge - Discharge Plan Condition: Stable Disposition: HOME Patient Education Materials: Knee Pain (ED) Referrals: Bobby Silver MD [Medical Doctor] - Carmen Barnhart MD [Medical Doctor] - Carla Murphy RN [Primary Care Provider] - Additional Instructions: Follow up with Dr. Barnhart regarding injury. Take Tylenol for pain Ricco wrap or knee brace will help Follow up with physical therapy Water activities only until further evaluation by a ortho physician or PT.
== END | disposition home or self-care (01) ==
LOC: ED 17:26
DX: M25.562 Pain in left knee (principal); Z87.891 Personal history of nicotine dependence; Z85.828 Personal history of other malignant neoplasm of skin; W19.XXXA Unspecified fall, initial encounter; Y92.9 Unspecified place or not applicable; Z88.5 Allergy status to narcotic agent; E11.9 Type 2 diabetes mellitus without complications; Z79.01 Long term (current) use of anticoagulants; I25.10 Atherosclerotic heart disease of native coronary artery without angina pectoris; E78.00 Pure hypercholesterolemia, unspecified; I10 Essential (primary) hypertension; I25.2 Old myocardial infarction; J44.9 Chronic obstructive pulmonary disease, unspecified; F41.9 Anxiety disorder, unspecified; F32.9 Major depressive disorder, single episode, unspecified
CPT/HCPCS: 99281

== ENCOUNTER 2017-03-09 13:15 | Emergency (ER) | payer MEDICARE, BC ==
--- NOTE | 2017-03-09 14:41 | RAD ---
INDICATION: Head injury. COMPARISON: Comparison is made with a prior CT of the brain from May 16, 2015. TECHNIQUE: Contiguous axial sections of the brain were obtained from the skull base to the vertex without contrast. FINDINGS: The ventricles, cisterns and sulci are enlarged consistent with age-related atrophy. There are small areas of decreased density in the subcortical and periventricular white matter suggestive of mild chronic small vessel ischemic changes. No other focal abnormality or mass effect is seen. 6There is no evidence for hemorrhage. No significant focal osseous abnormality is seen. The visualized portion of the paranasal sinuses and mastoid air cells appear clear. IMPRESSION: NO EVIDENCE FOR ACUTE INTRACRANIAL ABNORMALITY.
--- NOTE | 2017-03-09 14:53 | RAD ---
INDICATION: Trauma. COMPARISON: Comparison is made with prior CTs of the cervical spine from May 16, 2015 and November 10, 2016. TECHNIQUE: Contiguous axial sections were obtained from the skull base through the T1 vertebra. Images were reconstructed in the sagittal and coronal planes. FINDINGS: There is straightening of the cervical spine with loss of the normal cervical lordosis. No prevertebral soft tissue swelling or fracture is seen. There are small lucent lesions within the C4 and C6 vertebral bodies which appear unchanged from the prior studies. At the C2-C3 level there is mild to moderate posterior uncinate process spurring and severe hypertrophic changes within the facet joints. No significant spinal canal narrowing is present. There is moderate bilateral neural foraminal narrowing. At the C3-C4 level there is mild posterior uncinate process spurring and moderate to severe hypertrophic changes within the facet joints. There is mild spinal canal narrowing. There is moderate to severe neural foraminal narrowing on the right side and severe neural foraminal narrowing on the left side. At the C4-C5 level there is mild posterior uncinate process spurring and moderate hypertrophic changes within the left facet joint. No significant spinal canal narrowing is present. There is moderate to severe neural foraminal narrowing on the left side. At the C5-C6 level there is mild posterior uncinate process spurring and mild hypertrophic changes within the facet joints. There is mild spinal canal narrowing and mild to moderate bilateral neural foraminal narrowing. At the C6-C7 level there is mild posterior uncinate process spurring. No significant spinal canal narrowing is present. There is mild to moderate bilateral neural foraminal narrowing. IMPRESSION: 1. STRAIGHTENING OF THE CERVICAL SPINE, NO EVIDENCE FOR FRACTURE OR SUBLUXATION. 2. MODERATE TO SEVERE CERVICAL SPONDYLOSIS.
[2017-03-09 16:09] VITALS: BP 157/63
--- NOTE | 2017-03-09 18:48 | ED ---
Kristine Ardon Edward, scribed for Marty Hensley MD on 03/09/17 at 1327 . Adult Trauma - HPI Summary HPI Summary: 86 y/o female BIBA c/o sudden onset dizziness and lightheadedness s/p fall earlier today. The patient was walking out to her car at [employer] and tripped. Pt landed on her knees and her head on her R side. Pt also c/o CHEN and a laceration over her R eyebrow s/p fall. Denies CP and ABD pain. Associated sx: shoulder feels stiff. - History of Current Complaint Chief Complaint: EDHeadInjury Stated Complaint: FALL LAC TO RIGHT EYE, NECK PAIN Time Seen by Provider: 03/09/17 13:26 Hx Obtained From: Patient Hx Last Menstrual Period: NA Mechanism of Injury: Fall Loss of Consciousness: no loss of consciousness Onset of Pain: Immediate Current Severity: Severe Pain Intensity: 6 Pain Scale Used: 0-10 Numeric Location: Head, Extremities - Knees bilaterally Associated Signs & Symptoms: Positive: Other: - Dizziness, lightheadedness, CHEN, laceration over R eyebrow, abrasions @ R elbow and bilateral knees. Shoulder feels stiff. Negative: Chest Pain, Abdominal Pain - Additional Pertinent History Primary Care Physician: PATRICE - Allergy/Home Medications Allergies/Adverse Reactions: Allergies Allergy/AdvReac Type Severity Reaction Status Date / Time Levofloxacin [From Levaquin] Allergy Hives/Diff. Verified 12/08/16 03:56 Breathing/I tching Codeine AdvReac Unknown Nausea Verified 12/08/16 03:56 Simvastatin [From Zocor] AdvReac Unknown Leg Cramps Verified 12/08/16 03:56 PMH/Surg Hx/FS Hx/Imm Hx Previously Healthy: No Endocrine/Hematology History: Reports: Hx Anticoagulant Therapy, Hx Diabetes - TYPE 2 Denies: Hx Thyroid Disease Cardiovascular History: Reports: Hx Angina, Hx Congestive Heart Failure - She states that she may have CHF., Hx Coronary Artery Disease, Hx Hypercholesterolemia, Hx Hypertension, Hx Myocardial Infarction - Pt states that she may have had an MD in 2004., Hx Syncope - "Possible syncopal episodes" , Other Cardiovascular Problems/Disorders - STENTS Denies: Hx Deep Vein Thrombosis, Hx Pacemaker/ICD Respiratory History: Reports: Hx Chronic Obstructive Pulmonary Disease (COPD), Hx Sleep Apnea - CPAP Denies: Hx Asthma, Hx Lung Cancer, Hx Pneumonia, Hx Pulmonary Embolism GI History: Reports: Hx Crohn's Disease, Hx Gastroesophageal Reflux Disease, Hx Ulcer - Also ulcerative colitis? Crohn's? Denies: Hx Gall Bladder Disease, Hx Gastrointestinal Bleed, Hx Urosepsis History: Reports: Hx Kidney Infection, Other Problems/Disorders - Pt of hessons in past Denies: Hx Kidney Stones, Hx Renal Disease Musculoskeletal History: Reports: Hx Arthritis, Hx Back Problems, Hx Bursitis - shoulders, Hx Tendonitis - shoulders, Other Musculoskeletal History - "joint pain" Denies: Hx Scoliosis Sensory History: Reports: Hx Contacts or Glasses, Hx Hearing Aid, Hx Hearing Problem Opthamlomology History: Reports: Hx Contacts or Glasses Neurological History: Reports: Hx Headaches - AND NAUSEA, Other Neuro Impairments/Disorders - LEFT SHOULDER SURGERY Denies: Hx Dementia, Hx Developmental Delay, Hx Migraine, Hx Seizures, Hx Transient Ischemic Attacks (TIA) Psychiatric History: Reports: Hx Anxiety, Hx Depression, Hx Suicide Attempt Denies: Hx Panic Disorder, Hx Schizophrenia, Hx Bipolar Disorder - Cancer History Cancer Type, Location and Year: skin cancer 1999 - Surgical History Surgery Procedure, Year, and Place: PERFORATED EAR DRUM X2;. PARTIAL HYSTERECTOMY;. SHOULDER SURGERY ;. 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 HEMHORROIDECTOMY;. 3 STENTS IN [facility]- [facility]- ;. [employer] LOOP RECORDER-(BECKY FROM [employer] OFFICE CALLED [facility] LOOP RECORDER IS DOWNLOADED EVERY NIGHT- DO IT IS OKAY TO HAVE AN MRI) Hx Anesthesia Reactions: No Infectious Disease History: No Infectious Disease History: Denies: Hx Clostridium Difficile, Hx Hepatitis, Hx Human Immunodeficiency Virus (HIV), Hx of Known/Suspected MRSA, Hx Shingles, Hx Tuberculosis, Hx Known/ Suspected VRE, Hx Known/Suspected VRSA, History Other Infectious Disease - pt states has current uti, Traveled Outside the [place] in Last 30 Days - Family History Known Family History: Positive: Cardiac Disease - Paternal , Hypertension, Diabetes Family History: FHx of Breast CA - Mother, Grandmother. Positive diverticulitis to mother. - Social History Alcohol Use: None Hx Substance Use: No Substance Use Type: Reports: None Hx Tobacco Use: Yes Smoking Status (MU): Former Smoker Type: Cigarettes Amount Used/How Often: 1 pack day Length of Time of Smoking/Using Tobacco: 40 years Have You Smoked in the Last Year: No Review of Systems Constitutional: Negative Eyes: Negative ENT: Negative Cardiovascular: Negative Respiratory: Negative Gastrointestinal: Negative Genitourinary: Negative Musculoskeletal: Other - R shoulder feels stiff Skin: Other - Laceration over R eyebrow, abrasions @ R elbow and bilateral knees Neurological: Other - Dizziness, lightheadedness Positive: Headache Psychological: Normal All Other Systems Reviewed And Are Negative: Yes Physical Exam Triage Information Reviewed: Yes Vital Signs On Initial Exam: Initial Vitals Temp Pulse Resp BP Pulse Ox 98.4 F 82 18 160/71 94 03/09/17 13:17 03/09/17 13:17 03/09/17 13:17 03/09/17 13:03/09/17 13:17 Vital Signs Reviewed: Yes Appearance: Positive: Well-Appearing, No Pain Distress Head/Face: Positive: Other - superficial laceration lateral right face over lateral right orbital bone area. Eyes: Positive: EOMI, CRIS ENT: Negative: Nasal drainage Neck: Positive: Supple, Tenderness @ - diffuse Respiratory/Lung Sounds: Positive: Clear to Auscultation, Breath Sounds Present Cardiovascular: Positive: RRR. Negative: Murmur Abdomen Description: Positive: Nontender Musculoskeletal: Positive: Strength/ROM Intact Neurological: Positive: Sensory/Motor Intact, Alert, Oriented to Person Place, Time, CN Intact II-III Psychiatric: Positive: Normal - [place] Coma Scale Best Eye Response: 4 - Spontaneous Best Motor Response: 6 - Obeys Commands Best Verbal Response: 5 - Oriented Coma Scale Total: 15 Procedures - Laceration/Wound Repair 1 Location: face Description: Stellate Length, Depth and Shape: 2cm Betadine Prep?: No Irrigated w/ Saline (ccs): 100 Laceration/Wound Explored: clean Closure: Skin Adhesive Layer Closure?: No Sterile Dressing Applied?: No Diagnostics - Vital Signs Vital Signs Temp Pulse Resp BP Pulse Ox 03/09/17 13:17 98.4 F 82 18 160/71 94 - Laboratory Lab Statement: Any lab studies that have been ordered have been reviewed, and results considered in the medical decision making process. - CT BRAIN CT CT Interpretation: No Acute Changes - NO EVIDENCE FOR ACUTE INTRACRANIAL ABNORMALITY. CT Interpretation Completed By: Radiologist C SPINE CT CT Interpretation: Positive (See Comments) - 1. STRAIGHTENING OF THE CERVICAL SPINE, NO EVIDENCE FOR FRACTURE OR SUBLUXATION. 2. MODERATE TO SEVERE CERVICAL SPONDYLOSIS. CT Interpretation Completed By: Radiologist Adult Trauma Course/Dx - Course Course Of Treatment: 86 yr female with neg ct. lac repair with glue. Tetanus shot 5 years ago per the patient. She is otherwise stable. - Diagnoses Provider Diagnoses: Laceration of face, Head injury Discharge - Discharge Plan Condition: Good Disposition: HOME Patient Education Materials: Head Injury (ED), Skin Adhesive Care (ED), Laceration (ED) Referrals: Rachel LEWIS [employer] PL[employer] OPERATORCarla [Primary Care Provider] - The documentation as recorded by the Kristine cavazos Edward accurately reflects the service I personally performed and the decisions made by , Marty Hensley MD.
== END 2017-03-09 16:09 | disposition home or self-care (01) ==
LOC: ED 13:15
DX: S01.111A Laceration without foreign body of right eyelid and periocular area, initial encounter (principal); S09.90XA Unspecified injury of head, initial encounter; R42 Dizziness and giddiness; W19.XXXA Unspecified fall, initial encounter; Y93.89 Activity, other specified; Y92.89 Other specified places as the place of occurrence of the external cause; Z87.891 Personal history of nicotine dependence; R51 Headache; Z79.01 Long term (current) use of anticoagulants; E11.9 Type 2 diabetes mellitus without complications
CPT/HCPCS: 70450; 72125; 99282

== ENCOUNTER 2017-07-20 10:53 | Emergency (ER) | payer MEDICARE, OTHER ==
[2017-07-20 10:58] VITALS: BP 146/91
[2017-07-20] MEDS ORDERED: Acetaminophen TAB* 325 MG PO ONE (11:20)
--- NOTE | 2017-08-02 08:26 | ED ---
Upper Extremity Pain - HPI Summary HPI Summary: Patient presents to the ED with CC of pain in the right shoulder pain. Patient states she fell last night coming in her house after visiting her son. She states her arms were full of stuff and was not using her cane. She believes she just fell on the shoulder and she denies LOC or hitting her head. She was able to crawl around till she found something to grab onto to pull self up. pain to right arm and right shoulder. pt currently using this arm for cane to ambulate. pt also using this arm for hand gestures to describe what happened. states she wanted to wait till this morning to be seen, as lines would be shorter. While speaking about the shoulder, she adds her forearm and hand also hurt. But she denies numbness, tingling, color or temperature changes. Pulses +2 bilaterally. Cap refill < 2 sec. Patient is alert and oriented and denies any known neuro deficits including memory loss after the incident. - History of Current Complaint Chief Complaint: EDExtremityUpper Stated Complaint: FALL Time Seen by Provider: 07/20/17 11:01 Hx Obtained From: Patient Hx Last Menstrual Period: NA Mechanism Of Injury: Blunt Trauma, Fall From A Standing Position Onset/Duration: Started Days Ago Timing: Constant Severity Initially: Mild Severity Currently: Mild Pain Location: Shoulder, Forearm, Hand Character: Aching Aggravating Factor(s): Movement Alleviating Factor(s): Rest, Ice Related History: Dominant Hand Right - Risk Factors Non-Orthopedic Risk Factor: Negative DVT Risk Factors: Negative Septic Arthritis Risk Factor: Negative Compartment Syndrome Risk Factors: Pain - Allergies/Home Medications Allergies/Adverse Reactions: Allergies Allergy/AdvReac Type Severity Reaction Status Date / Time Levofloxacin [From Levaquin] Allergy Hives/Diff. Verified 12/08/16 03:56 Breathing/I tching Codeine AdvReac Unknown Nausea Verified 12/08/16 03:56 Simvastatin [From Zocor] AdvReac Unknown Leg Cramps Verified 12/08/16 03:56 PMH/Surg Hx/FS Hx/Imm Hx Previously Healthy: Yes Endocrine/Hematology History: Reports: Hx Anticoagulant Therapy, Hx Diabetes - TYPE 2 Denies: Hx Thyroid Disease Cardiovascular History: Reports: Hx Angina, Hx Congestive Heart Failure - She states that she may have CHF., Hx Coronary Artery Disease, Hx Hypercholesterolemia, Hx Hypertension, Hx Myocardial Infarction - Pt states that she may have had an AL in 2004., Hx Syncope - "Possible syncopal episodes" , Other Cardiovascular Problems/Disorders - STENTS Denies: Hx Deep Vein Thrombosis, Hx Pacemaker/ICD Respiratory History: Reports: Hx Chronic Obstructive Pulmonary Disease (COPD), Hx Sleep Apnea - CPAP Denies: Hx Asthma, Hx Lung Cancer, Hx Pneumonia, Hx Pulmonary Embolism GI History: Reports: Hx Crohn's Disease, Hx Gastroesophageal Reflux Disease, Hx Ulcer - Also ulcerative colitis? Crohn's? Denies: Hx Gall Bladder Disease, Hx Gastrointestinal Bleed, Hx Urosepsis History: Reports: Hx Kidney Infection, Other Problems/Disorders - Pt of hessons in past Denies: Hx Kidney Stones, Hx Renal Disease Musculoskeletal History: Reports: Hx Arthritis, Hx Back Problems, Hx Bursitis - shoulders, Hx Tendonitis - shoulders, Other Musculoskeletal History - "joint pain" Denies: Hx Scoliosis Sensory History: Reports: Hx Contacts or Glasses, Hx Hearing Aid, Hx Hearing Problem Opthamlomology History: Reports: Hx Contacts or Glasses Neurological History: Reports: Hx Headaches - AND NAUSEA, Other Neuro Impairments/Disorders - LEFT SHOULDER SURGERY Denies: Hx Dementia, Hx Developmental Delay, Hx Migraine, Hx Seizures, Hx Transient Ischemic Attacks (TIA) Psychiatric History: Reports: Hx Anxiety, Hx Depression, Hx Suicide Attempt Denies: Hx Panic Disorder, Hx Schizophrenia, Hx Bipolar Disorder - Cancer History Cancer Type, Location and Year: skin cancer 1999 - Surgical History Surgery Procedure, Year, and Place: PERFORATED EAR DRUM X2;. PARTIAL HYSTERECTOMY;. SHOULDER SURGERY ;. 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 HEMHORROIDECTOMY;. 3 STENTS IN HEART- [facility]- ;. [facility] [employer] LO[facility] LO[facility] IS DOWNLOADED EVERY NIGHT- DO IT IS OKAY TO HAVE AN MRI) Hx Anesthesia Reactions: No - Immunization History Hx Pertussis Vaccination: No Immunizations Up to Date: Unable to Obtain/Confirm Infectious Disease History: No Infectious Disease History: Denies: Hx Clostridium Difficile, Hx Hepatitis, Hx Human Immunodeficiency Virus (HIV), Hx of Known/Suspected MRSA, Hx Shingles, Hx Tuberculosis, Hx Known/ Suspected VRE, Hx Known/Suspected VRSA, History Other Infectious Disease - pt states has current uti, Traveled Outside the [place] in Last 30 Days - Family History Known Family History: Positive: Cardiac Disease - Paternal , Hypertension, Diabetes Family History: FHx of Breast CA - Mother, Grandmother. Positive diverticulitis to mother. - Social History Occupation: Unemployed Lives: With Family Alcohol Use: None Hx Substance Use: No Substance Use Type: Reports: None Hx Tobacco Use: Yes Smoking Status (MU): Former Smoker Type: Cigarettes Amount Used/How Often: 1 pack day Length of Time of Smoking/Using Tobacco: 40 years Have You Smoked in the Last Year: No Review of Systems Constitutional: Negative Negative: Fever, Chills ENT: Negative Cardiovascular: Negative Respiratory: Negative Positive: no symptoms reported, see HPI Positive: Myalgia - right shoulder, forearm and hand pain Skin: Negative Neurological: Negative All Other Systems Reviewed And Are Negative: Yes Physical Exam Triage Information Reviewed: Yes Vital Signs On Initial Exam: Initial Vitals Temp Pulse Resp BP Pulse Ox 98.1 F 96 18 146/91 97 07/20/17 10:53 07/20/17 10:53 07/20/17 10:53 07/20/17 10:53 07/20/17 10:53 Vital Signs Reviewed: Yes Appearance: Positive: Well-Appearing, Well-Nourished Skin: Positive: Warm, Skin Color Reflects Adequate Perfusion Head/Face: Positive: Normal Head/Face Inspection Eyes: Positive: EOMI, CRIS, Conjunctiva Clear Neck: Positive: Supple, No Lymphadenopathy Respiratory/Lung Sounds: Positive: Clear to Auscultation, Breath Sounds Present Cardiovascular: Positive: RRR, Pulses are Symmetrical in both Upper and Lower Extremities Musculoskeletal: Positive: Pain @ - right shoulder on abduction to the shoulder , but no pain on palpation Neurological: Positive: Speech Normal Psychiatric: Positive: Normal, Affect/Mood Appropriate - Indra Coma Scale Coma Scale Total: 15 Diagnostics - Vital Signs Vital Signs Temp Pulse Resp BP Pulse Ox 07/20/17 10:53 98.1 F 96 18 146/91 97 - Laboratory Lab Statement: Any lab studies that have been ordered have been reviewed, and results considered in the medical decision making process. Course/Dx - Course Course Of Treatment: During the course of treatment, patient was evaluated for pain in the right shoulder, forearm and hand. Xrays ordered and while awaiting the imaging, patient eloped without telling RN or provider. - Diagnoses Provider Diagnoses: Right shoulder pain Discharge - Discharge Plan Condition: Stable Disposition: OTHER Discharge Disposition Comment: Patient eloped while awaiting imaging Referrals: Carla Murphy RN [Primary Care Provider] -
== END 2017-07-20 13:23 ==
LOC: ED 10:53
DX: S49.91XA Unspecified injury of right shoulder and upper arm, initial encounter (principal); W19.XXXA Unspecified fall, initial encounter; Y92.009 Unspecified place in unspecified non-institutional (private) residence as the place of occurrence of the external cause; F17.210 Nicotine dependence, cigarettes, uncomplicated; Z88.3 Allergy status to other anti-infective agents; Z88.5 Allergy status to narcotic agent; Z88.8 Allergy status to other drugs, medicaments and biological substances
CPT/HCPCS: 99282; A9270-GY